=== PATIENT | male | born 1960 | race Caucasian/White ===

== ENCOUNTER → 2016-09-23 | Outpatient (CLI) | payer BC ==
--- NOTE | 2016-09-28 11:24 | ECHO ---
EXAM DATE: 09/23/16 PATIENT'S AGE: 56 The echocardiogram report can be seen in this patient's EMR (Electronic Medical Record) in the Reports section. PEARL
== END ==
LOC: MW.US 13:48
PROVIDERS: ATTEND Internal Medicine
DX: R07.9 Chest pain, unspecified (principal)
CPT/HCPCS: 93306

== ENCOUNTER → 2016-09-24 | Outpatient (CLI) | payer BC ==
--- NOTE | 2016-09-27 09:20 | NM ---
EXAMINATION: Nuclear medicine myocardial perfusion study with exercise stress test. HISTORY: Chest pain. PROCEDURE: Patient exercised according to Vin protocol for 7 minutes and 42 seconds and achieved maximal hear t rate of 152 beats per minute. Adequate exercise. Following intravenous administration of 10.3 and 32.4 mCi of technetium 99m sestamibi, stress and rest SPECT images including gating imaging was performed. FINDINGS: Stress and rest myocardial SPECT images demonstrates uniform tracer uptake throughout the left ventr icular myocardium. Review of gated images demonstrates normal wall motion, contractility and wall thickening. The left ventricular ejection fraction is 71 %. The left ventricular chamber size is normal. IMPRESSION: 1. No evidence of myocardial ischemia. 2. Normal ventricular chamber size and function with ejection fraction of 71 %.
--- NOTE | 2016-09-27 17:08 | PCM.PRNOTE ---
- Free Text/Narrative Note: Procedure: Cardiolite exercise stress test Resting blood pressure 132/84, pulse 78 Patient exercised per Vin protocol 7 minutes and 42 seconds and achieved a maximum heart rate of 152 beats per minute which was 92% of age-predicted maximum heart rate. Mets: 10.1 double product 72506 Resting EKG revealed normal sinus rhythm With exertion, no significant ST-T changes were noted. Test stopped at target heart rate. No complaints of chest pain during exercise or recovery with an unremarkable recovery phase. Impression: #1. Negative stress test for ischemic ST-T changes #2. Fair exercise tolerance #3. Cardiolite portion of test pending.
== END ==
LOC: MW.NM 06:25
PROVIDERS: ATTEND Internal Medicine
DX: R07.9 Chest pain, unspecified (principal)
CPT/HCPCS: 78452; 93017; A9500

== ENCOUNTER 2021-01-21 09:52 | Inpatient (IN) | payer BC ==
[2021-01-21] MEDS ORDERED: Sodium Chloride 0.9% 1,000 ML IV ONE ×2 (10:05→11:25)
--- NOTE | 2021-01-21 10:12 | EDM.PDOC ---
ED HPI GENERAL MEDICAL PROBLEM - General Chief Complaint: Gastrointestinal Problem Stated Complaint: DIZZY/BLACK STOOL/ LOW BLOOD PRESSURE Time Seen by Provider: 01/21/21 09:57 Source of Information: Reports: Patient History Limitations: Reports: No Limitations - History of Present Illness INITIAL COMMENTS - FREE TEXT/NARRATIVE: 60-year-old male presents for generalized weakness, lightheadedness, dark tarry stools x3 days. Patient notes a history of similar several years ago, had a work-up revealing an intestinal polyp that was removed. No known history of esophageal varices or stomach ulcers. Patient denies any associated abdominal pain. He is not on any blood thinning medications. He does take medications for high blood pressure. - Related Data Allergies Allergy/AdvReac Type Severity Reaction Status Date / Time No Known Allergies Allergy Verified 01/21/21 10:07 Home Meds: Home Meds . [No Known Home Meds] 01/08/16 [History] Past Medical History - Past Health History Medical/Surgical History: Denies Medical/Surgical History Respiratory History: Reports: Sleep Apnea Endocrine/Metabolic History: Reports: Obesity/BMI 30+ - Past Surgical History Head Surgeries/Procedures: Reports: None Other GI Surgeries/Procedures: hiatal hernia lap surgery 15 yrs ago ED ROS GENERAL - Review of Systems Review Of Systems: Comprehensive ROS is negative, except as noted in HPI. ED EXAM, GENERAL - Physical Exam Exam: See Below Exam Limited By: No Limitations General Appearance: Alert, WD/WN, No Apparent Distress, Other (Pale skin) Ears: Hearing Grossly Normal Nose: Normal Inspection Throat/Mouth: Normal Voice, No Airway Compromise Head: Atraumatic, Normocephalic Neck: Normal Inspection Respiratory/Chest: No Respiratory Distress, Lungs Clear, Normal Breath Sounds, No Accessory Muscle Use Cardiovascular: Normal Peripheral Pulses, Tachycardia GI/Abdominal: Soft, Non-Tender Extremities: Normal Inspection Neurological: Alert, Oriented, Normal Cognition, Normal Gait Psychiatric: Normal Affect, Normal Mood Skin Exam: Warm, Dry, Intact, Pallor #1 Interpretation EKG Date: 01/21/21 Time: 10:11 Rhythm: NSR Rate (Beats/Min): 85 [place]: Normal P-Wave: Present QRS: Normal ST-T: Normal QT: Normal OR/PQ Interval: 138 Comparison: NA - No Prior EKG EKG Interpretation Comments: normal EKG Course - Vital Signs Last Recorded V/S: Last Vital Signs Temp 96.8 F L 01/21/21 10:05 Pulse 89 01/21/21 11:40 Resp 16 01/21/21 11:40 BP 130/72 01/21/21 11:40 Pulse Ox 100 01/21/21 11:40 - Orders/Labs/Meds Orders: Active Orders 24 hr Category Date Time Status PATIENT RETYPE [BBK] Routine Lab 01/21/21 11:47 Received REFLEX LACTIC ACID YES OR NO [CHEM] Routine Lab 01/21/21 10:42 Received Saline Lock Insert [OM.PC] Stat Oth 01/21/21 10:05 Ordered Labs: Laboratory Tests 01/21/21 01/21/21 01/21/21 Range/Units 10:03 10:04 10:04 WBC 11.59 H (4.0-11.0) K/uL RBC 4.31 L (4.50-5.90) M/uL Hgb 12.6 L (13.0-17.0) g/dL Hct 36.2 L (38.0-50.0) % MCV 84.0 (80.0-98.0) fL MCH 29.2 (27.0-32.0) pg MCHC 34.8 (31.0-37.0) g/dL RDW Std Deviation 43.3 (28.0-62.0) fl RDW Coeff of Reji 14 (11.0-15.0) % Plt Count 318 (150-400) K/uL MPV 9.20 (7.40-12.00) fL Neut % (Auto) 51.6 (48.0-80.0) % Lymph % (Auto) 37.4 (16.0-40.0) % [place] % (Auto) 8.3 (0.0-15.0) % Eos % (Auto) 2.2 (0.0-7.0) % Baso % (Auto) 0.5 (0.0-1.5) % Neut # (Auto) 6.0 H (1.4-5.7) K/uL Lymph # (Auto) 4.3 H (0.6-2.4) K/uL [place] # (Auto) 1.0 H (0.0-0.8) K/uL Eos # (Auto) 0.3 (0.0-0.7) K/uL Baso # (Auto) 0.1 (0.0-0.1) K/uL Nucleated RBC % 0.0 /100WBC Nucleated RBCs # 0 K/uL INR APTT (18.6-31.3) SEC Sodium (136-148) mmol/L Potassium (3.5-5.1) mmol/L Chloride (98-107) mmol/L Carbon Dioxide (21.0-32.0) mmol/L BUN (7.0-18.0) mg/dL Creatinine (0.8-1.3) mg/dL Est Cr Clr Drug Dosing mL/min Estimated GFR (MDRD) ml/min Glucose (74-106) mg/dL Lactic Acid (0.4-2.0) mmol/L Calcium (8.5-10.1) mg/dL Magnesium (1.8-2.4) mg/dL Total Bilirubin (0.2-1.0) mg/dL AST (15-37) IU/L ALT (14-63) IU/L Alkaline Phosphatase (46-116) U/L Troponin I (0.000-0.056) ng/mL Total Protein (6.4-8.2) g/dL Albumin (3.4-5.0) g/dL Globulin (2.6-4.0) g/dL Albumin/Globulin Ratio (0.9-1.6) Lipase (73-393) U/L SARS-CoV-2 RNA (NATHALIE) NEGATIVE (NEGATIVE) Blood Type O NEGATIVE Antibody Screen NEGATIVE 01/21/21 01/21/21 01/21/21 Range/Units 10:04 10:04 10:04 WBC (4.0-11.0) K/uL RBC (4.50-5.90) M/uL Hgb (13.0-17.0) g/dL Hct (38.0-50.0) % MCV (80.0-98.0) fL MCH (27.0-32.0) pg MCHC (31.0-37.0) g/dL RDW Std Deviation (28.0-62.0) fl RDW Coeff of Reji (11.0-15.0) % Plt Count (150-400) K/uL MPV (7.40-12.00) fL Neut % (Auto) (48.0-80.0) % Lymph % (Auto) (16.0-40.0) % [place] % (Auto) (0.0-15.0) % Eos % (Auto) (0.0-7.0) % Baso % (Auto) (0.0-1.5) % Neut # (Auto) (1.4-5.7) K/uL Lymph # (Auto) (0.6-2.4) K/uL [place] # (Auto) (0.0-0.8) K/uL Eos # (Auto) (0.0-0.7) K/uL Baso # (Auto) (0.0-0.1) K/uL Nucleated RBC % /100WBC Nucleated RBCs # K/uL INR 1.05 APTT 24.1 (18.6-31.3) SEC Sodium 136 (136-148) mmol/L Potassium 4.6 (3.5-5.1) mmol/L Chloride 104 (98-107) mmol/L Carbon Dioxide 25.1 (21.0-32.0) mmol/L BUN 50 H (7.0-18.0) mg/dL Creatinine 1.1 (0.8-1.3) mg/dL Est Cr Clr Drug Dosing 70.82 mL/min Estimated GFR (MDRD) > 60.0 ml/min Glucose 158 H (74-106) mg/dL Lactic Acid 2.4 H* (0.4-2.0) mmol/L Calcium 8.0 L (8.5-10.1) mg/dL Magnesium 2.2 (1.8-2.4) mg/dL Total Bilirubin 0.6 (0.2-1.0) mg/dL AST 15 (15-37) IU/L ALT 24 (14-63) IU/L Alkaline Phosphatase 65 (46-116) U/L Troponin I < 0.050 (0.000-0.056) ng/mL Total Protein 6.5 (6.4-8.2) g/dL Albumin 3.4 (3.4-5.0) g/dL Globulin 3.1 (2.6-4.0) g/dL Albumin/Globulin Ratio 1.1 (0.9-1.6) Lipase 73 (73-393) U/L SARS-CoV-2 RNA (NATHALIE) (NEGATIVE) Blood Type Antibody Screen Meds: Medications Discontinued Medications Generic Name Dose Route Start Last Admin Trade Name Jeanine PRN Reason Stop Dose Admin Sodium Chloride 1,000 mls @ 999 mls/hr 01/21/21 10:05 01/21/21 10:23 Normal Saline IV 01/21/21 11:05 999 mls/hr .Bolus ONE Administration Pantoprazole Sodium 80 mg/ 20 mls @ 420 mls/hr 01/21/21 10:22 01/21/21 10:28 Sodium Chloride IVPUSH 01/21/21 10:24 420 mls/hr ONETIME ONE Administration Sodium Chloride 1,000 mls @ 999 mls/hr 01/21/21 11:25 01/21/21 11:34 Normal Saline IV 01/21/21 12:25 999 mls/hr .Bolus ONE Administration Iopamidol 100 ml 01/21/21 11:35 01/21/21 11:36 Iopamidol 755 Mg/Ml 500 Ml Multipack Bottle IVPUSH 01/21/21 11:36 100 ml ONETIME STA Administration - Re-Assessments/Exams Free Text/Narrative Re-Assessment/Exam: 01/21/21 10:12 Patient presents with GI bleed. Will get labs. 2 large-bore IVs placed in bilateral AC. 1 L fluid bolus ordered. 01/21/21 10:23 Rectal exam reveals dark tarry stool that is grossly guaiac positive 01/21/21 13:14 Dr Gallagher general surgery agrees to consult 01/21/21 13:22 Patient was accepted by hospitalist Dr. Gallagher Departure - Departure Time of Disposition: 13:23 Disposition: Admitted As Inpatient 68 Condition: Good Clinical Impression: UGIB (upper gastrointestinal bleed) - Discharge Information Referrals: Vin Ivey MD [Primary Care Provider] - Forms: ED Department Discharge Sepsis Event Note (ED) - Evaluation Sepsis Screening Result: Possible Sepsis Risk - Focused Exam Vital Signs: Vital Signs Temp Pulse Resp BP Pulse Ox 01/21/21 11:40 89 16 130/72 100 01/21/21 10:24 87 16 107/66 99 01/21/21 10:05 96.8 F L 118 H 17 120/71 97 - My Orders Last 24 Hours: My Active Orders 01/21/21 10:05 Saline Lock Insert [OM.PC] Stat 01/21/21 10:42 REFLEX LACTIC ACID YES OR NO [CHEM] Routine 01/21/21 11:47 PATIENT RETYPE [BBK] Routine - Assessment/Plan Last 24 Hours: My Active Orders 01/21/21 10:05 Saline Lock Insert [OM.PC] Stat 01/21/21 10:42 REFLEX LACTIC ACID YES OR NO [CHEM] Routine 01/21/21 11:47 PATIENT RETYPE [BBK] Routine
[2021-01-21] MEDS ORDERED: Pantoprazole 80 MG in Sodium Chloride 0.9% 20 ML IVPUSH ONE (10:22)
[2021-01-21 10:35] LABS: BLOOD UREA NITROGEN,BUN 50 mg/dL (7.0-18.0); CARBON DIOXIDE,CO2 25.1 mmol/L (21.0-32.0); CHLORIDE,CL 104 mmol/L (98-107); GLUCOSE RANDOM 158 mg/dL (74-106); LIPASE 73 U/L (73-393); POTASSIUM,K 4.6 mmol/L (3.5-5.1); SODIUM,NA 136 mmol/L (136-148)
[2021-01-21] MEDS ORDERED: Iopamidol 755 MG/ML 500 ML Multipack Bottle IVPUSH STA (11:35)
--- NOTE | 2021-01-21 13:06 | CT ---
INDICATION: Melena, question GI bleed. COMPARISON: None. TECHNIQUE: CTA of the abdomen and pelvis with 100 cc of Isovue 370 IV contrast. Coronal and sagittal reconstructions. 3D post processing was performed. FINDINGS: Evaluation of the solid organs is somewhat limited by arterial phase of contrast. The liver, gallbladder, spleen, pancreas, and adrenal glands are negative. No biliary dilation. Symmetric enhancement of the kidneys. No hydronephrosis or ureteral dilation. No obstructing urinary calculi. The bladder is normal in appearance. Mildly enlarged prostate gland with calcifications. Postoperative changes at the gastroesophageal junction, likely a fundoplication. No bowel dilation. No abnormal bowel wall thickening or mucosal hyperenhancement to suggest inflammation. No focus of active extravasation identified. No obvious accumulation of intraluminal blood products. Negative appendix. No intraperitoneal free air or fluid. No lymphadenopathy. The abdominal aorta and bilateral iliac arteries are normal in caliber without evidence of dissection or penetrating atheromatous ulcer. The celiac artery, superior mesenteric artery, inferior mesenteric artery, and bilateral renal arteries are patent without significant stenosis. Minimal scattered calcified atheromatous plaque. Degenerative changes of the spine. Few small sclerotic lesions in the pelvis may represent bone islands. Cluster of small noncalcified pulmonary nodules with associated ground-glass opacity in the anterior right lower lobe is likely infectious or inflammatory (series 403 images 3-8). The largest nodule measures 6 mm in size. IMPRESSION: 1. No acute findings in the abdomen or pelvis. 2. No evidence of bowel inflammation, active extravasation, or intraluminal blood products. 3. Mildly enlarged prostate gland. 4. Cluster of small pulmonary nodules with associated ground-glass opacity in the anterior right lower lobe is likely infectious or inflammatory. The largest nodule measures 6 mm in size. Follow-up per Fleischner Society guidelines. Please note that all CT scans at this facility use dose modulation, iterative reconstruction, and/or weight-based dosing when appropriate to reduce radiation dose to as low as reasonably achievable. Dictated by Karen Sepulveda MD @ 01/21/2021 1:05:02 PM (Electronically Signed)
[2021-01-21] MEDS ORDERED: Ondansetron 4 MG/2 ML SDV IVPUSH PRN (15:01)
[2021-01-21] MEDS ORDERED: Sodium Chloride 0.9% 2.5 ML Syringe FLUSH PRN (15:01)
--- NOTE | 2021-01-21 15:09 | PCM.HP.2 ---
H&P History of Present Illness - General Date of Service: 01/21/21 Admit Problem/Dx: Admission Diagnosis/Problem Admission Diagnosis/Problem Upper gastrointestinal hemorrhage Source of Information: Patient, Family (at bedside, ) History Limitations: Reports: No Limitations - History of Present Illness Initial Comments - Free Text/Narative: This 60-year-old male with past medical history of HTN, ANNETTE and obesity along with hiatal hernia laparoscopic surgery approximately 15 years ago presented to the ER today with complaints of generalized weakness lightheadedness and dark tarry stools for approximately 3 days. He denies any abdominal pain fevers chills chest pain or shortness of breath. He denies any use of blood thinners. He denies use of Pepto-Bismol or Tums recently no daily use of PPIs. He reports intermittent use of Excedrin for headaches has not used anything recently. He denies any tobacco use or recreational drug use. He reports he drinks a couple drinks a couple times a week but not nightly. Reports he had a colonoscopy a few years ago which they found an intestinal polyp which was removed. He reports he is currently due for colonoscopy denies ever having an EGD. He denies any history of GERD after hiatal hernia surgery. In the ER EKG sinus rhythm heart rate [address] or T wave changes. Guaiac positive stools he was treated with 1 L IV fluids. Lab work reveals WBC 11.5 hemoglobin 12.6 hematocrit 36.2. INR 1.05 BUN is 50 creatinine 1.1. Glucose 158 lactic acid elevated at 2.4 troponin negative Covid swab negative abdominal CTA of the belly reveals no acute findings in the abdomen or pelvis no evidence of bowel inflammation active extravasation or intraluminal blood products. Mildly large prostate gland. Cluster small pulmonary nodules with associated groundglass opacities in the anterior right lower lobe is likely infectious or inflammatory largest nodule 6 mm. Follow-up with PCP. Vital signs in the ER initially patient was noted to be tachycardic heart rate 118 blood pressure 120/71 97% on room air. ER provider contacted Dr. Tom Dumont, general surgery will likely take patient for endoscopy. Patient to be admitted for suspected upper GI bleed. - Related Data Allergies/Adverse Reactions: Allergies Allergy/AdvReac Type Severity Reaction Status Date / Time No Known Allergies Allergy Verified 01/21/21 10:07 Home Medications: Home Meds . [No Known Home Meds] 01/08/16 [History] Past Medical History - Past Health History Medical/Surgical History: Denies Medical/Surgical History HEENT History: Reports: None Cardiovascular History: Reports: Hypertension. Denies: Afib, Blood Clots/VTE/DVT, CAD, [place], Stents Respiratory History: Reports: Sleep Apnea Gastrointestinal History: Reports: GERD (Has been's consult hiatal hernia surgery), Hiatal Hernia (Surgery approximately 15 years ago to correct this) Genitourinary History: Reports: None. Denies: Acute Renal Failure Musculoskeletal History: Reports: None Neurological History: Reports: None Psychiatric History: Reports: None Endocrine/Metabolic History: Reports: Obesity/BMI 30+. Denies: Diabetes, Type II Hematologic History: Reports: None Immunologic History: Reports: None Oncologic (Cancer) History: Reports: None Dermatologic History: Reports: None - Infectious Disease History Infectious Disease History: Reports: None - Past Surgical History Head Surgeries/Procedures: Reports: None GI Surgical History: Reports: Hernia Repair/Other (Hiatal hernia laparoscopic surgery 15 years ago to correct) Endocrine Surgical History: Reports: None Musculoskeletal Surgical History: Reports: None Social & Family History - Family History Family Medical History: No Pertinent Family History - Tobacco Use Tobacco Use Status *Q: Never Tobacco User - Caffeine Use Caffeine Use: Reports: None - Alcohol Use Days Per Week of Alcohol Use: 2 Number of Drinks Per Day: 2 Total Drinks Per Week: 4 - Recreational Drug Use Recreational Drug Use: No - Living Situation & Occupation Living situation: Reports: Occupation: Employed H&P Review of Systems - Review of Systems: Review Of Systems: See Below General: Reports: Malaise, Weakness, Fatigue. Denies: Fever, Chills HEENT: Reports: Vertigo. Denies: Headaches, Sinus Congestion, Sore Throat Pulmonary: Reports: No Symptoms. Denies: Shortness of Breath Cardiovascular: Reports: Dyspnea on Exertion, Lightheadedness. Denies: Chest Pain, Palpitations Gastrointestinal: Reports: Black Stool. Denies: Abdominal Pain, Nausea, Vomiting Genitourinary: Reports: No Symptoms. Denies: Dysuria, Frequency, Burning Musculoskeletal: Reports: No Symptoms. Denies: Neck Pain Skin: Reports: No Symptoms Psychiatric: Reports: No Symptoms Neurological: Reports: No Symptoms Hematologic/Lymphatic: Reports: No Symptoms Immunologic: Reports: No Symptoms Exam - Exam Exam: See Below - Vital Signs Vital Signs: Last Vital Signs Temp 96.6 F L 01/21/21 13:35 Pulse 88 01/21/21 13:35 Resp 18 01/21/21 13:35 BP 113/71 01/21/21 13:35 Pulse Ox 100 01/21/21 13:35 Weight: 92.986 kg - Exam General: Alert, Oriented, Cooperative HEENT: Conjunctiva Clear, Mucosa Moist & [place], Posterior Pharynx Clear Lungs: Clear to Auscultation, Normal Respiratory Effort Cardiovascular: Regular Rate, Regular Rhythm GI/Abdominal Exam: Normal Bowel Sounds, Soft, Non-Tender Back Exam: Normal Inspection, Full Range of Motion Extremities: Normal Inspection, Normal Range of Motion, Non-Tender, No Pedal Edema Neuro Extensive - Mental Status: Alert, Oriented x3 Neuro Extensive - Motor, Sensory, Reflexes: CN II-XII Intact Psychiatric: Alert, Normal Affect, Normal Mood - Patient Data Lab Results Last 24 hrs: Laboratory Results - last 24 hr 01/21/21 01/21/21 01/21/21 Range/Units 10:03 10:04 10:04 WBC 11.59 H (4.0-11.0) K/uL RBC 4.31 L (4.50-5.90) M/uL Hgb 12.6 L (13.0-17.0) g/dL Hct 36.2 L (38.0-50.0) % MCV 84.0 (80.0-98.0) fL MCH 29.2 (27.0-32.0) pg MCHC 34.8 (31.0-37.0) g/dL RDW Std Deviation 43.3 (28.0-62.0) fl RDW Coeff of Reji 14 (11.0-15.0) % Plt Count 318 (150-400) K/uL MPV 9.20 (7.40-12.00) fL Neut % (Auto) 51.6 (48.0-80.0) % Lymph % (Auto) 37.4 (16.0-40.0) % [place] % (Auto) 8.3 (0.0-15.0) % Eos % (Auto) 2.2 (0.0-7.0) % Baso % (Auto) 0.5 (0.0-1.5) % Neut # (Auto) 6.0 H (1.4-5.7) K/uL Lymph # (Auto) 4.3 H (0.6-2.4) K/uL [place] # (Auto) 1.0 H (0.0-0.8) K/uL Eos # (Auto) 0.3 (0.0-0.7) K/uL Baso # (Auto) 0.1 (0.0-0.1) K/uL Nucleated RBC % 0.0 /100WBC Nucleated RBCs # 0 K/uL INR APTT (18.6-31.3) SEC Sodium (136-148) mmol/L Potassium (3.5-5.1) mmol/L Chloride (98-107) mmol/L Carbon Dioxide (21.0-32.0) mmol/L BUN (7.0-18.0) mg/dL Creatinine (0.8-1.3) mg/dL Est Cr Clr Drug Dosing mL/min Estimated GFR (MDRD) ml/min Glucose (74-106) mg/dL Lactic Acid (0.4-2.0) mmol/L Calcium (8.5-10.1) mg/dL Magnesium (1.8-2.4) mg/dL Total Bilirubin (0.2-1.0) mg/dL AST (15-37) IU/L ALT (14-63) IU/L Alkaline Phosphatase (46-116) U/L Troponin I (0.000-0.056) ng/mL Total Protein (6.4-8.2) g/dL Albumin (3.4-5.0) g/dL Globulin (2.6-4.0) g/dL Albumin/Globulin Ratio (0.9-1.6) Lipase (73-393) U/L SARS-CoV-2 RNA (NATHALIE) NEGATIVE (NEGATIVE) Blood Type O NEGATIVE Antibody Screen NEGATIVE 01/21/21 01/21/21 01/21/21 Range/Units 10:04 10:04 10:04 WBC (4.0-11.0) K/uL RBC (4.50-5.90) M/uL Hgb (13.0-17.0) g/dL Hct (38.0-50.0) % MCV (80.0-98.0) fL MCH (27.0-32.0) pg MCHC (31.0-37.0) g/dL RDW Std Deviation (28.0-62.0) fl RDW Coeff of Reji (11.0-15.0) % Plt Count (150-400) K/uL MPV (7.40-12.00) fL Neut % (Auto) (48.0-80.0) % Lymph % (Auto) (16.0-40.0) % [place] % (Auto) (0.0-15.0) % Eos % (Auto) (0.0-7.0) % Baso % (Auto) (0.0-1.5) % Neut # (Auto) (1.4-5.7) K/uL Lymph # (Auto) (0.6-2.4) K/uL Snyder # (Auto) (0.0-0.8) K/uL Eos # (Auto) (0.0-0.7) K/uL Baso # (Auto) (0.0-0.1) K/uL Nucleated RBC % /100WBC Nucleated RBCs # K/uL INR 1.05 APTT 24.1 (18.6-31.3) SEC Sodium 136 (136-148) mmol/L Potassium 4.6 (3.5-5.1) mmol/L Chloride 104 (98-107) mmol/L Carbon Dioxide 25.1 (21.0-32.0) mmol/L BUN 50 H (7.0-18.0) mg/dL Creatinine 1.1 (0.8-1.3) mg/dL Est Cr Clr Drug Dosing 70.82 mL/min Estimated GFR (MDRD) > 60.0 ml/min Glucose 158 H (74-106) mg/dL Lactic Acid 2.4 H* (0.4-2.0) mmol/L Calcium 8.0 L (8.5-10.1) mg/dL Magnesium 2.2 (1.8-2.4) mg/dL Total Bilirubin 0.6 (0.2-1.0) mg/dL AST 15 (15-37) IU/L ALT 24 (14-63) IU/L Alkaline Phosphatase 65 (46-116) U/L Troponin I < 0.050 (0.000-0.056) ng/mL Total Protein 6.5 (6.4-8.2) g/dL Albumin 3.4 (3.4-5.0) g/dL Globulin 3.1 (2.6-4.0) g/dL Albumin/Globulin Ratio 1.1 (0.9-1.6) Lipase 73 (73-393) U/L SARS-CoV-2 RNA (NATHALIE) (NEGATIVE) Blood Type Antibody Screen Result Diagrams: 01/21/21 10:04 01/21/21 10:04 Sepsis Event Note - Evaluation Sepsis Screening Result: Possible Sepsis Risk - Focused Exam Vital Signs: Vital Signs Temp Pulse Resp BP Pulse Ox 01/21/21 13:35 96.6 F L 88 18 113/71 100 01/21/21 11:40 89 16 130/72 100 01/21/21 10:24 87 16 107/66 99 01/21/21 10:05 96.8 F L 118 H 17 120/71 97 *Q Meaningful Use (ADM) - VTE *Q VTE Pharmacological Contraindications *Q: Active Hemorrhage - Problem List (1) UGIB (upper gastrointestinal bleed) SNOMED Code(s): 86986728 ICD Code: K92.2 - GASTROINTESTINAL HEMORRHAGE, UNSPECIFIED Status: Acute Current Visit: Yes (2) Hypertension SNOMED Code(s): 54901786 ICD Code: I10 - ESSENTIAL (PRIMARY) HYPERTENSION Status: Chronic Current Visit: Yes (3) Obesity SNOMED Code(s): 378036688, 369437056 ICD Code: E66.9 - OBESITY, UNSPECIFIED Status: Chronic Current Visit: Yes (4) ANNETTE (obstructive sleep apnea) SNOMED Code(s): 51306116 ICD Code: G47.33 - OBSTRUCTIVE SLEEP APNEA (ADULT) (PEDIATRIC) Status: Chronic Current Visit: Yes Problem List Initiated/Reviewed/Updated: Yes Orders Last 24hrs: Active Orders 24 hr Category Date Time Status Patient Status [ADT] Routine ADT 01/21/21 13:23 Active Antiembolic Devices [RC] PER UNIT ROUTINE Care 01/21/21 15:02 Ordered Intake and Output [RC] QSHIFT Care 01/21/21 15:01 Ordered Oxygen Therapy [RC] PRN Care 01/21/21 15:01 Ordered Peripheral IV Care [RC] . DIRECTED Care 01/21/21 15:01 Ordered Up With Assistance [RC] ASDIRECTED Care 01/21/21 15:01 Ordered VTE/DVT Education [RC] PER UNIT ROUTINE Care 01/21/21 15:01 Ordered Vital Signs [RC] Q4H Care 01/21/21 15:01 Ordered BASIC METABOLIC PANEL,BMP [CHEM] AM Lab 01/22/21 05:11 Ordered CBC WITH AUTO DIFF [HEME] AM Lab 01/22/21 05:11 Ordered HEMOGLOBIN/HEMATOCRIT,HH [HEME] Timed Lab 01/21/21 16:00 Ordered LACTIC ACID [CHEM] Routine Lab 01/21/21 14:42 Ordered Ondansetron [Zofran] Med 01/21/21 15:01 Ordered 4 mg IVPUSH Q4H PRN Pantoprazole [ProTONIX IV] Med 01/21/21 21:00 Ordered 40 mg IV Q12HR Sodium Chloride 0.9% [Normal Saline] 1,000 ml Med 01/21/21 15:15 Ordered IV Q8H Sodium Chloride 0.9% [Saline Flush] Med 01/21/21 15:01 Ordered 2.5 ml FLUSH ASDIRECTED PRN Peripheral IV Insertion Adult [OM.PC] Routine Oth 01/21/21 15:01 Ordered Saline Lock Insert [OM.PC] Routine Oth 01/21/21 15:01 Ordered Sequential Compression Device [OM.PC] Per Unit Routine Oth 01/21/21 15:02 Ordered VTE Pharmacological Contraindications [AST] Per Unit Oth 01/21/21 15:01 Ordered Routine Resuscitation Status Routine Resus Stat 01/21/21 15:01 Ordered Medication Orders Sodium Chloride (Normal Saline) 1,000 mls @ 125 mls/hr IV Q8H BERNIE Ondansetron HCl (Ondansetron 4 Mg/2 Ml Sdv) 4 mg IVPUSH Q4H PRN PRN Reason: Nausea Pantoprazole Sodium (Pantoprazole 40 Mg Vial) 40 mg IV Q12HR BERNIE Sodium Chloride (Sodium Chloride 0.9% 2.5 Ml Syringe) 2.5 ml FLUSH ASDIRECTED PRN PRN Reason: Keep Vein Open Assessment/Plan Comment:: This 60-year-old male admitted with upper GI bleed 1. Upper GI bleed -Repeat hemoglobin now along with a lactic acid -Patient treated with 2 L IV fluids in the ER -Blood pressure stable heart rate has improved from tachycardia on arrival. -Guaiac positive in the ER -Protonix 40 mg every 12 IV -Normal saline 125 mL/h -N.p.o. -Consult Dr. Tom Dumont, general surgery for endoscopy 2. HTN/ANNETTE -Hold losartan for now VTE prophylaxis: SCDs and ambulation only due to current bleeding GI prophylaxis: Protonix CODE STATUS: Full code Dispo: 2 days pending improvement - Mortality Measure Prognosis:: Good
[2021-01-21] MEDS: Sodium Chloride 0.9% 1,000 ML IV SCH ×2 (15:24→23:14)
[2021-01-21] MEDS ORDERED: Pantoprazole 40 MG Vial IV SCH (21:00)
[2021-01-21] MEDS: Pantoprazole 40 MG in Sodium Chloride 0.9% 10 ML IV SCH (22:00)
--- NOTE | 2021-01-21 23:56 | CONS ---
DATE OF CONSULTATION: 01/21/2021 DATE OF : 1960 PRIMARY CARE PHYSICIAN: Vin Ivey HISTORY OF PRESENT ILLNESS: The patient is a pleasant 60-year-old gentleman who says for the past 3 days he has had some very dark stools. Initially, they were a little more loose, but now they are more solid and they have been a slightly [employer] he says. He just had one a day. He says that also he started having a little bit of lightheadedness. He is feeling better now. He did have guaiac-positive stools. He went to the ER for evaluation. The patient says in the past, he will have dark stools 3 to 4 times a year, like it is now, cut they only last for a day or so then go away. This has been happening for a few years. He says about 6 or 7 years ago, he had a similar episode, and he had a colonoscopy, which just found one polyp that was removed. The patient denies any heartburn or GERD issues. The patient says he had a repair of his hiatal hernia about 20 years ago. He does not know if he had a wrap, although on CT scan it looks like there was a wrap done. He does not take any antacids. PAST MEDICAL HISTORY: Significant for hypertension, obstructive sleep apnea. CURRENT HOME MEDICATION: Losartan daily. ALLERGIES: No known drug allergies. SOCIAL HISTORY: The patient denies any tobacco use, denies illicit drug use, denies any alcohol use. FAMILY HISTORY: Denies any family history of cancer or heart disease or diabetes. PAST SURGICAL HISTORY: Hiatal hernia repair with likely fundoplication. REVIEW OF SYSTEMS: Complete 12+ review of systems was done and was negative except those in the HPI. PHYSICAL EXAMINATION: GENERAL: The patient is lying comfortably in his bed. He is alert and oriented, in no acute distress. VITALS: Temperature is 98.8, pulse is 83, blood pressure is 114/72, saturating 99% on room air. HEENT: Head is normocephalic, atraumatic. LUNGS: Clear to auscultation bilaterally. No rhonchi or wheezing heard. HEART: Regular rate and rhythm. No murmur appreciated. ABDOMEN: Soft, nontender, nondistended. EXTREMITIES: No edema. NEUROLOGIC: Grossly no motor or neurologic deficits noted. LABORATORY DATA: White cell count 11.56, hemoglobin is 11.5. BUN is 50, glucose is 158. Lactic acid 1.5. COVID is negative. ASSESSMENT AND PLAN: The patient is a pleasant 60-year-old gentleman with some what he calls very dark stools over the last 3 days. These seem to be improving. First, they were loose and now a little bit more solid. The patient has had this issue with very dark stools in the past. I did go over with the patient that dark stools could be a sign of a gastrointestinal bleed. I did go over we could do a lower and upper endoscopy. I went over what an upper endoscopy and lower endoscopy were. I went over the risks, goals, and alternatives to the procedure. The risks include, but not limited to, bleeding, perforation, missed lesions, failure to complete the procedure. I did go over if we saw any polyp or lesion, we will try to remove or biopsy at that time. I did explain with the EGD we will look for some gastritis, ulcers, and maybe bleeding. The patient says he understands. He wishes to proceed with the procedure. All the patient's questions were answered. I did go over that we could do a bowel prep tomorrow and get him scoped the next day. The patient would like to proceed with procedure. I did go over with the patient that we might not find a cause for dark stools in either of the two scopes. The patient says he understands. I did discuss the patient with the Medicine team. All the patient's questions were answered. JUD BERNSTEIN /[id number] PEARL
[2021-01-22 06:50] LABS: BLOOD UREA NITROGEN,BUN 22 mg/dL (7.0-18.0); CARBON DIOXIDE,CO2 24.7 mmol/L (21.0-32.0); CHLORIDE,CL 108 mmol/L (98-107); GLUCOSE RANDOM 99 mg/dL (74-106); POTASSIUM,K 4.1 mmol/L (3.5-5.1); SODIUM,NA 140 mmol/L (136-148)
[2021-01-22] MEDS: Sodium Chloride 0.9% 1,000 ML IV SCH ×2 (07:46→15:42)
--- NOTE | 2021-01-22 08:05 | PCM.PN ---
- General Info Date of Service: 01/22/21 Admission Dx/Problem (Free Text): Admission Diagnosis/Problem Admission Diagnosis/Problem Upper gastrointestinal hemorrhage Subjective Update: Feeling improved today. Had a black stool small this morning nothing overnight. Denies any chest pain abdominal pain or heartburn. Otherwise feeling well. Functional Status: Reports: Pain Controlled, Tolerating Diet (Clear liquid), Ambulating, Urinating - Review of Systems General: Reports: No Symptoms. Denies: Weakness, Fatigue, Malaise Pulmonary: Reports: No Symptoms. Denies: Shortness of Breath Cardiovascular: Reports: No Symptoms. Denies: Chest Pain Gastrointestinal: Reports: No Symptoms. Denies: Abdominal Pain, Nausea, Vomitin g Genitourinary: Reports: No Symptoms. Denies: Dysuria, Frequency, Burning Musculoskeletal: Reports: No Symptoms Skin: Reports: No Symptoms Neurological: Reports: No Symptoms Psychiatric: Reports: No Symptoms - Patient Data Vitals - Most Recent: Last Vital Signs Temp 97.4 F 01/22/21 04:00 Pulse 71 01/22/21 04:00 Resp 17 01/22/21 04:00 BP 102/59 L 01/22/21 04:00 Pulse Ox 97 01/22/21 04:00 Weight - Most Recent: 94.937 kg I&O - Last 24 Hours: Intake & Output 01/21/21 01/22/21 01/22/21 22:59 06:59 14:59 Intake Total 1660 Output Total 400 Balance 1260 Lab Results Last 24 Hours: Laboratory Results - last 24 hr 01/21/21 01/21/21 01/21/21 Range/Units 10:03 10:04 10:04 WBC 11.59 H (4.0-11.0) K/uL RBC 4.31 L (4.50-5.90) M/uL Hgb 12.6 L (13.0-17.0) g/dL Hct 36.2 L (38.0-50.0) % MCV 84.0 (80.0-98.0) fL MCH 29.2 (27.0-32.0) pg MCHC 34.8 (31.0-37.0) g/dL RDW Std Deviation 43.3 (28.0-62.0) fl RDW Coeff of Reji 14 (11.0-15.0) % Plt Count 318 (150-400) K/uL MPV 9.20 (7.40-12.00) fL Neut % (Auto) 51.6 (48.0-80.0) % Lymph % (Auto) 37.4 (16.0-40.0) % Nicholas % (Auto) 8.3 (0.0-15.0) % Eos % (Auto) 2.2 (0.0-7.0) % Baso % (Auto) 0.5 (0.0-1.5) % Neut # (Auto) 6.0 H (1.4-5.7) K/uL Lymph # (Auto) 4.3 H (0.6-2.4) K/uL Nicholas # (Auto) 1.0 H (0.0-0.8) K/uL Eos # (Auto) 0.3 (0.0-0.7) K/uL Baso # (Auto) 0.1 (0.0-0.1) K/uL Nucleated RBC % 0.0 /100WBC Nucleated RBCs # 0 K/uL INR APTT (18.6-31.3) SEC Sodium (136-148) mmol/L Potassium (3.5-5.1) mmol/L Chloride (98-107) mmol/L Carbon Dioxide (21.0-32.0) mmol/L BUN (7.0-18.0) mg/dL Creatinine (0.8-1.3) mg/dL Est Cr Clr Drug Dosing mL/min Estimated GFR (MDRD) ml/min Glucose (74-106) mg/dL Lactic Acid (0.4-2.0) mmol/L Calcium (8.5-10.1) mg/dL Magnesium (1.8-2.4) mg/dL Total Bilirubin (0.2-1.0) mg/dL AST (15-37) IU/L ALT (14-63) IU/L Alkaline Phosphatase (46-116) U/L Troponin I (0.000-0.056) ng/mL Total Protein (6.4-8.2) g/dL Albumin (3.4-5.0) g/dL Globulin (2.6-4.0) g/dL Albumin/Globulin Ratio (0.9-1.6) Lipase (73-393) U/L SARS-CoV-2 RNA (NATHALIE) NEGATIVE (NEGATIVE) Blood Type O NEGATIVE Antibody Screen NEGATIVE 01/21/21 01/21/21 01/21/21 Range/Units 10:04 10:04 10:04 WBC (4.0-11.0) K/uL RBC (4.50-5.90) M/uL Hgb (13.0-17.0) g/dL Hct (38.0-50.0) % MCV (80.0-98.0) fL MCH (27.0-32.0) pg MCHC (31.0-37.0) g/dL RDW Std Deviation (28.0-62.0) fl RDW Coeff of Reji (11.0-15.0) % Plt Count (150-400) K/uL MPV (7.40-12.00) fL Neut % (Auto) (48.0-80.0) % Lymph % (Auto) (16.0-40.0) % Nicholas % (Auto) (0.0-15.0) % Eos % (Auto) (0.0-7.0) % Baso % (Auto) (0.0-1.5) % Neut # (Auto) (1.4-5.7) K/uL Lymph # (Auto) (0.6-2.4) K/uL Nicholas # (Auto) (0.0-0.8) K/uL Eos # (Auto) (0.0-0.7) K/uL Baso # (Auto) (0.0-0.1) K/uL Nucleated RBC % /100WBC Nucleated RBCs # K/uL INR 1.05 APTT 24.1 (18.6-31.3) SEC Sodium 136 (136-148) mmol/L Potassium 4.6 (3.5-5.1) mmol/L Chloride 104 (98-107) mmol/L Carbon Dioxide 25.1 (21.0-32.0) mmol/L BUN 50 H (7.0-18.0) mg/dL Creatinine 1.1 (0.8-1.3) mg/dL Est Cr Clr Drug Dosing 70.82 mL/min Estimated GFR (MDRD) > 60.0 ml/min Glucose 158 H (74-106) mg/dL Lactic Acid 2.4 H* (0.4-2.0) mmol/L Calcium 8.0 L (8.5-10.1) mg/dL Magnesium 2.2 (1.8-2.4) mg/dL Total Bilirubin 0.6 (0.2-1.0) mg/dL AST 15 (15-37) IU/L ALT 24 (14-63) IU/L Alkaline Phosphatase 65 (46-116) U/L Troponin I < 0.050 (0.000-0.056) ng/mL Total Protein 6.5 (6.4-8.2) g/dL Albumin 3.4 (3.4-5.0) g/dL Globulin 3.1 (2.6-4.0) g/dL Albumin/Globulin Ratio 1.1 (0.9-1.6) Lipase 73 (73-393) U/L SARS-CoV-2 RNA (NATHALIE) (NEGATIVE) Blood Type Antibody Screen 01/21/21 01/21/21 01/21/21 Range/Units 15:17 15:17 23:40 WBC (4.0-11.0) K/uL RBC (4.50-5.90) M/uL Hgb 11.5 L 9.9 L (13.0-17.0) g/dL Hct 32.9 L 28.2 L (38.0-50.0) % MCV (80.0-98.0) fL MCH (27.0-32.0) pg MCHC (31.0-37.0) g/dL RDW Std Deviation (28.0-62.0) fl RDW Coeff of Reji (11.0-15.0) % Plt Count (150-400) K/uL MPV (7.40-12.00) fL Neut % (Auto) (48.0-80.0) % Lymph % (Auto) (16.0-40.0) % Nicholas % (Auto) (0.0-15.0) % Eos % (Auto) (0.0-7.0) % Baso % (Auto) (0.0-1.5) % Neut # (Auto) (1.4-5.7) K/uL Lymph # (Auto) (0.6-2.4) K/uL Nicholas # (Auto) (0.0-0.8) K/uL Eos # (Auto) (0.0-0.7) K/uL Baso # (Auto) (0.0-0.1) K/uL Nucleated RBC % /100WBC Nucleated RBCs # K/uL INR APTT (18.6-31.3) SEC Sodium (136-148) mmol/L Potassium (3.5-5.1) mmol/L Chloride (98-107) mmol/L Carbon Dioxide (21.0-32.0) mmol/L BUN (7.0-18.0) mg/dL Creatinine (0.8-1.3) mg/dL Est Cr Clr Drug Dosing mL/min Estimated GFR (MDRD) ml/min Glucose (74-106) mg/dL Lactic Acid 1.5 (0.4-2.0) mmol/L Calcium (8.5-10.1) mg/dL Magnesium (1.8-2.4) mg/dL Total Bilirubin (0.2-1.0) mg/dL AST (15-37) IU/L ALT (14-63) IU/L Alkaline Phosphatase (46-116) U/L Troponin I (0.000-0.056) ng/mL Total Protein (6.4-8.2) g/dL Albumin (3.4-5.0) g/dL Globulin (2.6-4.0) g/dL Albumin/Globulin Ratio (0.9-1.6) Lipase (73-393) U/L SARS-CoV-2 RNA (NATHALIE) (NEGATIVE) Blood Type Antibody Screen 01/22/21 01/22/21 Range/Units 05:35 05:35 WBC 5.74 (4.0-11.0) K/uL RBC 3.10 L (4.50-5.90) M/uL Hgb 9.2 L (13.0-17.0) g/dL Hct 26.2 L (38.0-50.0) % MCV 84.5 (80.0-98.0) fL MCH 29.7 (27.0-32.0) pg MCHC 35.1 (31.0-37.0) g/dL RDW Std Deviation 44.6 (28.0-62.0) fl RDW Coeff of Reji 15 (11.0-15.0) % Plt Count 178 (150-400) K/uL MPV 8.90 (7.40-12.00) fL Neut % (Auto) 62.1 (48.0-80.0) % Lymph % (Auto) 26.7 (16.0-40.0) % Nicholas % (Auto) 8.4 (0.0-15.0) % Eos % (Auto) 2.6 (0.0-7.0) % Baso % (Auto) 0.2 (0.0-1.5) % Neut # (Auto) 3.6 (1.4-5.7) K/uL Lymph # (Auto) 1.5 (0.6-2.4) K/uL Nicholas # (Auto) 0.5 (0.0-0.8) K/uL Eos # (Auto) 0.2 (0.0-0.7) K/uL Baso # (Auto) 0.0 (0.0-0.1) K/uL Nucleated RBC % 0.0 /100WBC Nucleated RBCs # 0 K/uL INR APTT (18.6-31.3) SEC Sodium 140 (136-148) mmol/L Potassium 4.1 (3.5-5.1) mmol/L Chloride 108 H (98-107) mmol/L Carbon Dioxide 24.7 (21.0-32.0) mmol/L BUN 22 H (7.0-18.0) mg/dL Creatinine 1.0 (0.8-1.3) mg/dL Est Cr Clr Drug Dosing 77.90 mL/min Estimated GFR (MDRD) > 60.0 ml/min Glucose 99 (74-106) mg/dL Lactic Acid (0.4-2.0) mmol/L Calcium 7.9 L (8.5-10.1) mg/dL Magnesium (1.8-2.4) mg/dL Total Bilirubin (0.2-1.0) mg/dL AST (15-37) IU/L ALT (14-63) IU/L Alkaline Phosphatase (46-116) U/L Troponin I (0.000-0.056) ng/mL Total Protein (6.4-8.2) g/dL Albumin (3.4-5.0) g/dL Globulin (2.6-4.0) g/dL Albumin/Globulin Ratio (0.9-1.6) Lipase (73-393) U/L SARS-CoV-2 RNA (NATHALIE) (NEGATIVE) Blood Type Antibody Screen Med Orders - Current: Current Medications Sodium Chloride (Normal Saline) 1,000 mls @ 125 mls/hr IV Q8H [facility] Last Admin: 01/22/21 07:46 Dose: 125 mls/hr Documented by: Pantoprazole Sodium 40 mg/ (Sodium Chloride) 10 mls @ 300 mls/hr IV Q12H BERNIE Last Admin: 01/21/21 22:00 Dose: 300 mls/hr Documented by: Ondansetron HCl (Ondansetron 4 Mg/2 Ml Sdv) 4 mg IVPUSH Q4H PRN PRN Reason: Nausea Sodium Chloride (Sodium Chloride 0.9% 2.5 Ml Syringe) 2.5 ml FLUSH ASDIRECTED PRN PRN Reason: Keep Vein Open Discontinued Medications Sodium Chloride (Normal Saline) 1,000 mls @ 999 mls/hr IV .Bolus ONE Stop: 01/21/21 11:05 Last Admin: 01/21/21 10:23 Dose: 999 mls/hr Documented by: Pantoprazole Sodium 80 mg/ (Sodium Chloride) 20 mls @ 420 mls/hr IVPUSH ONETIME ONE Stop: 01/21/21 10:24 Last Admin: 01/21/21 10:28 Dose: 420 mls/hr Documented by: Sodium Chloride (Normal Saline) 1,000 mls @ 999 mls/hr IV .Bolus ONE Stop: 01/21/21 12:25 Last Admin: 01/21/21 11:34 Dose: 999 mls/hr Documented by: Iopamidol (Iopamidol 755 Mg/Ml 500 Ml Multipack Bottle) 100 ml IVPUSH ONETIME STA Stop: 01/21/21 11:36 Last Admin: 01/21/21 11:36 Dose: 100 ml Documented by: - Exam Quality Assessment: DVT Prophylaxis (SCDs only). No: Supplemental Oxygen General: Alert, Oriented, Cooperative, No Acute Distress Lungs: Clear to Auscultation, Normal Respiratory Effort Cardiovascular: Regular Rate, Regular Rhythm GI/Abdominal Exam: Normal Bowel Sounds, Soft, Non-Tender, Other (Small black stool this morning) Extremities: Normal Inspection, Normal Range of Motion, Non-Tender, No Pedal Edema Neurological: No New Focal Deficit Psy/Mental Status: Alert, Normal Affect, Normal Mood - Patient Data Lab Results Last 24 hrs: Laboratory Results - last 24 hr 01/21/21 01/21/21 01/21/21 Range/Units 10:03 10:04 10:04 WBC 11.59 H (4.0-11.0) K/uL RBC 4.31 L (4.50-5.90) M/uL Hgb 12.6 L (13.0-17.0) g/dL Hct 36.2 L (38.0-50.0) % MCV 84.0 (80.0-98.0) fL MCH 29.2 (27.0-32.0) pg MCHC 34.8 (31.0-37.0) g/dL RDW Std Deviation 43.3 (28.0-62.0) fl RDW Coeff of Reji 14 (11.0-15.0) % Plt Count 318 (150-400) K/uL MPV 9.20 (7.40-12.00) fL Neut % (Auto) 51.6 (48.0-80.0) % Lymph % (Auto) 37.4 (16.0-40.0) % Nicholas % (Auto) 8.3 (0.0-15.0) % Eos % (Auto) 2.2 (0.0-7.0) % Baso % (Auto) 0.5 (0.0-1.5) % Neut # (Auto) 6.0 H (1.4-5.7) K/uL Lymph # (Auto) 4.3 H (0.6-2.4) K/uL Nicholas # (Auto) 1.0 H (0.0-0.8) K/uL Eos # (Auto) 0.3 (0.0-0.7) K/uL Baso # (Auto) 0.1 (0.0-0.1) K/uL Nucleated RBC % 0.0 /100WBC Nucleated RBCs # 0 K/uL INR APTT (18.6-31.3) SEC Sodium (136-148) mmol/L Potassium (3.5-5.1) mmol/L Chloride (98-107) mmol/L Carbon Dioxide (21.0-32.0) mmol/L BUN (7.0-18.0) mg/dL Creatinine (0.8-1.3) mg/dL Est Cr Clr Drug Dosing mL/min Estimated GFR (MDRD) ml/min Glucose (74-106) mg/dL Lactic Acid (0.4-2.0) mmol/L Calcium (8.5-10.1) mg/dL Magnesium (1.8-2.4) mg/dL Total Bilirubin (0.2-1.0) mg/dL AST (15-37) IU/L ALT (14-63) IU/L Alkaline Phosphatase (46-116) U/L Troponin I (0.000-0.056) ng/mL Total Protein (6.4-8.2) g/dL Albumin (3.4-5.0) g/dL Globulin (2.6-4.0) g/dL Albumin/Globulin Ratio (0.9-1.6) Lipase (73-393) U/L SARS-CoV-2 RNA (NATHALIE) NEGATIVE (NEGATIVE) Blood Type O NEGATIVE Antibody Screen NEGATIVE 01/21/21 01/21/21 01/21/21 Range/Units 10:04 10:04 10:04 WBC (4.0-11.0) K/uL RBC (4.50-5.90) M/uL Hgb (13.0-17.0) g/dL Hct (38.0-50.0) % MCV (80.0-98.0) fL MCH (27.0-32.0) pg MCHC (31.0-37.0) g/dL RDW Std Deviation (28.0-62.0) fl RDW Coeff of Reji (11.0-15.0) % Plt Count (150-400) K/uL MPV (7.40-12.00) fL Neut % (Auto) (48.0-80.0) % Lymph % (Auto) (16.0-40.0) % Nicholas % (Auto) (0.0-15.0) % Eos % (Auto) (0.0-7.0) % Baso % (Auto) (0.0-1.5) % Neut # (Auto) (1.4-5.7) K/uL Lymph # (Auto) (0.6-2.4) K/uL Nicholas # (Auto) (0.0-0.8) K/uL Eos # (Auto) (0.0-0.7) K/uL Baso # (Auto) (0.0-0.1) K/uL Nucleated RBC % /100WBC Nucleated RBCs # K/uL INR 1.05 APTT 24.1 (18.6-31.3) SEC Sodium 136 (136-148) mmol/L Potassium 4.6 (3.5-5.1) mmol/L Chloride 104 (98-107) mmol/L Carbon Dioxide 25.1 (21.0-32.0) mmol/L BUN 50 H (7.0-18.0) mg/dL Creatinine 1.1 (0.8-1.3) mg/dL Est Cr Clr Drug Dosing 70.82 mL/min Estimated GFR (MDRD) > 60.0 ml/min Glucose 158 H (74-106) mg/dL Lactic Acid 2.4 H* (0.4-2.0) mmol/L Calcium 8.0 L (8.5-10.1) mg/dL Magnesium 2.2 (1.8-2.4) mg/dL Total Bilirubin 0.6 (0.2-1.0) mg/dL AST 15 (15-37) IU/L ALT 24 (14-63) IU/L Alkaline Phosphatase 65 (46-116) U/L Troponin I < 0.050 (0.000-0.056) ng/mL Total Protein 6.5 (6.4-8.2) g/dL Albumin 3.4 (3.4-5.0) g/dL Globulin 3.1 (2.6-4.0) g/dL Albumin/Globulin Ratio 1.1 (0.9-1.6) Lipase 73 (73-393) U/L SARS-CoV-2 RNA (NATHALIE) (NEGATIVE) Blood Type Antibody Screen 01/21/21 01/21/21 01/21/21 Range/Units 15:17 15:17 23:40 WBC (4.0-11.0) K/uL RBC (4.50-5.90) M/uL Hgb 11.5 L 9.9 L (13.0-17.0) g/dL Hct 32.9 L 28.2 L (38.0-50.0) % MCV (80.0-98.0) fL MCH (27.0-32.0) pg MCHC (31.0-37.0) g/dL RDW Std Deviation (28.0-62.0) fl RDW Coeff of Reji (11.0-15.0) % Plt Count (150-400) K/uL MPV (7.40-12.00) fL Neut % (Auto) (48.0-80.0) % Lymph % (Auto) (16.0-40.0) % Nicholas % (Auto) (0.0-15.0) % Eos % (Auto) (0.0-7.0) % Baso % (Auto) (0.0-1.5) % Neut # (Auto) (1.4-5.7) K/uL Lymph # (Auto) (0.6-2.4) K/uL Nicholas # (Auto) (0.0-0.8) K/uL Eos # (Auto) (0.0-0.7) K/uL Baso # (Auto) (0.0-0.1) K/uL Nucleated RBC % /100WBC Nucleated RBCs # K/uL INR APTT (18.6-31.3) SEC Sodium (136-148) mmol/L Potassium (3.5-5.1) mmol/L Chloride (98-107) mmol/L Carbon Dioxide (21.0-32.0) mmol/L BUN (7.0-18.0) mg/dL Creatinine (0.8-1.3) mg/dL Est Cr Clr Drug Dosing mL/min Estimated GFR (MDRD) ml/min Glucose (74-106) mg/dL Lactic Acid 1.5 (0.4-2.0) mmol/L Calcium (8.5-10.1) mg/dL Magnesium (1.8-2.4) mg/dL Total Bilirubin (0.2-1.0) mg/dL AST (15-37) IU/L ALT (14-63) IU/L Alkaline Phosphatase (46-116) U/L Troponin I (0.000-0.056) ng/mL Total Protein (6.4-8.2) g/dL Albumin (3.4-5.0) g/dL Globulin (2.6-4.0) g/dL Albumin/Globulin Ratio (0.9-1.6) Lipase (73-393) U/L SARS-CoV-2 RNA (NATHALIE) (NEGATIVE) Blood Type Antibody Screen 01/22/21 01/22/21 Range/Units 05:35 05:35 WBC 5.74 (4.0-11.0) K/uL RBC 3.10 L (4.50-5.90) M/uL Hgb 9.2 L (13.0-17.0) g/dL Hct 26.2 L (38.0-50.0) % MCV 84.5 (80.0-98.0) fL MCH 29.7 (27.0-32.0) pg MCHC 35.1 (31.0-37.0) g/dL RDW Std Deviation 44.6 (28.0-62.0) fl RDW Coeff of Reji 15 (11.0-15.0) % Plt Count 178 (150-400) K/uL MPV 8.90 (7.40-12.00) fL Neut % (Auto) 62.1 (48.0-80.0) % Lymph % (Auto) 26.7 (16.0-40.0) % Nicholas % (Auto) 8.4 (0.0-15.0) % Eos % (Auto) 2.6 (0.0-7.0) % Baso % (Auto) 0.2 (0.0-1.5) % Neut # (Auto) 3.6 (1.4-5.7) K/uL Lymph # (Auto) 1.5 (0.6-2.4) K/uL Nicholas # (Auto) 0.5 (0.0-0.8) K/uL Eos # (Auto) 0.2 (0.0-0.7) K/uL Baso # (Auto) 0.0 (0.0-0.1) K/uL Nucleated RBC % 0.0 /100WBC Nucleated RBCs # 0 K/uL INR APTT (18.6-31.3) SEC Sodium 140 (136-148) mmol/L Potassium 4.1 (3.5-5.1) mmol/L Chloride 108 H (98-107) mmol/L Carbon Dioxide 24.7 (21.0-32.0) mmol/L BUN 22 H (7.0-18.0) mg/dL Creatinine 1.0 (0.8-1.3) mg/dL Est Cr Clr Drug Dosing 77.90 mL/min Estimated GFR (MDRD) > 60.0 ml/min Glucose 99 (74-106) mg/dL Lactic Acid (0.4-2.0) mmol/L Calcium 7.9 L (8.5-10.1) mg/dL Magnesium (1.8-2.4) mg/dL Total Bilirubin (0.2-1.0) mg/dL AST (15-37) IU/L ALT (14-63) IU/L Alkaline Phosphatase (46-116) U/L Troponin I (0.000-0.056) ng/mL Total Protein (6.4-8.2) g/dL Albumin (3.4-5.0) g/dL Globulin (2.6-4.0) g/dL Albumin/Globulin Ratio (0.9-1.6) Lipase (73-393) U/L SARS-CoV-2 RNA (NATHALIE) (NEGATIVE) Blood Type Antibody Screen Result Diagrams: 01/22/21 05:35 01/22/21 05:35 Sepsis Event Note - Evaluation Sepsis Screening Result: No Definite Risk - Focused Exam Vital Signs: Vital Signs Temp Pulse Resp BP Pulse Ox 01/22/21 04:00 97.4 F 71 17 102/59 L 97 01/22/21 00:00 98.1 F 80 16 120/63 97 - Problem List & Annotations (1) UGIB (upper gastrointestinal bleed) SNOMED Code(s): 25698860 Code(s): K92.2 - GASTROINTESTINAL HEMORRHAGE, UNSPECIFIED Status: Acute Current Visit: Yes (2) Hypertension SNOMED Code(s): 51130162 Code(s): I10 - ESSENTIAL (PRIMARY) HYPERTENSION Status: Chronic Current Visit: Yes (3) Obesity SNOMED Code(s): 508575053, 951583165 Code(s): E66.9 - OBESITY, UNSPECIFIED Status: Chronic Current Visit: Yes (4) ANNETTE (obstructive sleep apnea) SNOMED Code(s): 48023270 Code(s): G47.33 - OBSTRUCTIVE SLEEP APNEA (ADULT) (PEDIATRIC) Status: Chronic Current Visit: Yes - Problem List Review Problem List Initiated/Reviewed/Updated: Yes - My Orders Last 24 Hours: My Active Orders 01/21/21 15:01 Intake and Output [RC] Q12H Oxygen Therapy [RC] PRN Peripheral IV Care [RC] . DIRECTED Up With Assistance [RC] ASDIRECTED VTE/DVT Education [RC] PER UNIT ROUTINE Vital Signs [RC] Q4H Ondansetron [Zofran] 4 mg IVPUSH Q4H PRN Sodium Chloride 0.9% [Saline Flush] 2.5 ml FLUSH ASDIRECTED PRN Peripheral IV Insertion Adult [OM.PC] Routine Saline Lock Insert [OM.PC] Routine VTE Pharmacological Contraindications [AST] Per Unit Routine Resuscitation Status Routine 01/21/21 15:02 Antiembolic Devices [RC] PER UNIT ROUTINE Sequential Compression Device [OM.PC] Per Unit Routine 01/21/21 15:15 Sodium Chloride 0.9% [Normal Saline] 1,000 ml IV Q8H 01/21/21 15:23 Consult to Physician [CONS] Routine 01/21/21 15:24 Notify Provider Consults [RC] ASDIRECTED - Plan Plan:: This 60-year-old male admitted with upper GI bleed 1. Upper GI bleed -Repeat H&H this evening hemoglobin 9 today. Stable no significant amounts of stool to suggest continued active bleeding -Blood pressure stable heart rate has improved from tachycardia on arrival. -Guaiac positive in the ER -Protonix 40 mg every 12 IV -Normal saline 125 mL/h -Clear liquid today start prep for colonoscopy/EGD this afternoon. N.p.o. after midnight scope tomorrow -Consult Dr. Tom Dumont, general surgery for endoscopy 2. HTN/ANNETTE -Hold losartan for now VTE prophylaxis: SCDs and ambulation only due to current bleeding GI prophylaxis: Protonix CODE STATUS: Full code Dispo: 2 days pending improvement
[2021-01-22] MEDS: Pantoprazole 40 MG in Sodium Chloride 0.9% 10 ML IV SCH ×2 (09:50→20:55)
[2021-01-22] MEDS: Bisacodyl 5 MG Tab PO SCH ×2 (13:00→20:55)
--- NOTE | 2021-01-22 13:38 | PN ---
SUBJECTIVE: The patient is resting comfortably in his hospital bed. He is alert and oriented in no acute distress. The patient was seen this morning. The patient says that he has not had any more dark bowel movements. His last bowel was actually yesterday. He denies any pain or discomfort and is feeling pretty good this morning. OBJECTIVE: ABDOMEN: Soft, nontender, and nondistended. DATA: Hemoglobin has dropped down to 9.2. ASSESSMENT/PLAN: The patient is a pleasant 60-year-old gentleman who says for 3 days, he had some very dark stools. He says this has happened off and on over the last couple of years. Today, he actually said about 5 years ago, he had a very similar episode of dark stools for which he was hospitalized here at that time. They did not do any scope they just kind of passed on their own. The patient is scheduled to get his colonoscopy and EGD tomorrow. We will do his bowel prep today. He has a drop in his hemoglobin. This could just be with hydration rather than continued acute bleed. The patient says he has not had any bowel movements for over 24 hours. Likely, the bleeding has stopped or is minimal. I did go over with the patient again what EGD was and colonoscopy. Went over, we may or may not find a cause of this bleeding. Patient does say now that he does take quite a few Excedrin for headaches that he has on occasion. I did go over that he should limit this because that can cause gastritis or ulcerations. All the patient's questions were answered. He will do his bowel prep today with plan for colonoscopy and EGD tomorrow. Did discuss the plan with the Medicine team. JUD BERNSTEIN /[id number] PEARL
[2021-01-22] MEDS ORDERED: Polyethylene Glycol 3350 Powder 17 GM Packet PO SCH (16:00)
[2021-01-23] MEDS: Sodium Chloride 0.9% 1,000 ML IV SCH ×2 (00:20→08:23)
[2021-01-23 06:25] LABS: BLOOD UREA NITROGEN,BUN 10 mg/dL (7.0-18.0); CARBON DIOXIDE,CO2 22.9 mmol/L (21.0-32.0); CHLORIDE,CL 109 mmol/L (98-107); GLUCOSE RANDOM 90 mg/dL (74-106); POTASSIUM,K 3.9 mmol/L (3.5-5.1); SODIUM,NA 139 mmol/L (136-148)
[2021-01-23] MEDS: Pantoprazole 40 MG in Sodium Chloride 0.9% 10 ML IV SCH (08:23)
--- NOTE | 2021-01-23 11:34 | PN ---
SUBJECTIVE: The patient was seen this morning. He says things are going well. He has no complaints. He feels the bowel prep went very well. He says he had some large bowel movements. At first, it was slightly dark but then it became brown, and now he is just having some clear slightly greenish fluid, but majority of his bowel movements were normal in color he said. He denies any lightheadedness or dizziness. OBJECTIVE: GENERAL: Sitting comfortably in room. He is alert and oriented, in no acute distress. ABDOMEN: Soft, nontender, and nondistended. VITAL SIGNS: Temperature is 96.9, pulse is 70, blood pressure is 115/66, and 99% on room air. LABORATORY DATA: Hemoglobin did go down to 7.9, BUN is back down to 10. ASSESSMENT/PLAN: The patient is a pleasant 60-year-old gentleman who had a couple days of very dark stools. He has had issues in the past with this. The patient denies any abdominal pain. Has not seen any bright red stools. Did have a drop in his hemoglobin, however, he has not had any dark or bloody stools with the bowel prep for his colonoscopy. No more dark stools, it has been brown and now liquid green. I did go over with the patient that we will do the colonoscopy and EGD today. I went over we may not find a source of his bleeding. The patient understands. All his questions were answered. JUD BERNSTEIN /[id number] PEARL
--- NOTE | 2021-01-23 11:35 | PCM.PREANE ---
Preanesthetic Assessment - Procedure Proposed Procedure: EGD, Colonoscopy - Anesthesia/Transfusion/Family Hx Anesthesia History: Prior Anesthesia Without Reaction Transfusion History: No Prior Transfusion(s) - Review of Systems General: No Symptoms Pulmonary: No Symptoms (ANNETTE does NOT use CPAP) Cardiovascular: No Symptoms (HTN) Gastrointestinal: Melena, Other (likely GI Bleed with severe drop in H/H) Neurological: No Symptoms Other: Reports: None - Physical Assessment NPO Status Date: 01/22/21 NPO Status Time: 17:00 Vital Signs: Last Vital Signs Temp 96.9 F 01/23/21 07:57 Pulse 70 01/23/21 07:57 Resp 22 H 01/23/21 07:57 BP 115/66 01/23/21 07:57 Pulse Ox 99 01/23/21 07:57 Height: 5 ft 8 in Weight: 94.937 kg ASA Class: 3 Mental Status: Alert & Oriented x3 Dentition: Reports: Normal Dentition Thyro-Mental Finger Breadths: 3 Mouth Opening Finger Breadths: 3 ROM/Head Extension: Full Lungs: Clear to Auscultation, Normal Respiratory Effort Cardiovascular: Regular Rate, Regular Rhythm - Lab Values: Laboratory Last Values WBC 5.16 K/uL (4.0-11.0) 01/23/21 05:20 RBC 2.72 M/uL (4.50-5.90) L 01/23/21 05:20 Hgb 7.9 g/dL (13.0-17.0) L 01/23/21 05:20 Hct 22.7 % (38.0-50.0) L 01/23/21 05:20 MCV 83.5 fL (80.0-98.0) 01/23/21 05:20 MCH 29.0 pg (27.0-32.0) 01/23/21 05:20 MCHC 34.8 g/dL (31.0-37.0) 01/23/21 05:20 RDW Std Deviation 43.9 fl (28.0-62.0) 01/23/21 05:20 RDW Coeff of Reji 15 % (11.0-15.0) 01/23/21 05:20 Plt Count 152 K/uL (150-400) 01/23/21 05:20 MPV 8.90 fL (7.40-12.00) 01/23/21 05:20 Neut % (Auto) 62.0 % (48.0-80.0) 01/23/21 05:20 Lymph % (Auto) 27.3 % (16.0-40.0) 01/23/21 05:20 [place] % (Auto) 6.8 % (0.0-15.0) 01/23/21 05:20 Eos % (Auto) 3.5 % (0.0-7.0) 01/23/21 05:20 Baso % (Auto) 0.4 % (0.0-1.5) 01/23/21 05:20 Neut # (Auto) 3.2 K/uL (1.4-5.7) 01/23/21 05:20 Lymph # (Auto) 1.4 K/uL (0.6-2.4) 01/23/21 05:20 [place] # (Auto) 0.4 K/uL (0.0-0.8) 01/23/21 05:20 Eos # (Auto) 0.2 K/uL (0.0-0.7) 01/23/21 05:20 Baso # (Auto) 0.0 K/uL (0.0-0.1) 01/23/21 05:20 Nucleated RBC % 0.0 /100WBC 01/23/21 05:20 Nucleated RBCs # 0 K/uL 01/23/21 05:20 INR 1.05 01/21/21 10:04 APTT 24.1 SEC (18.6-31.3) 01/21/21 10:04 Sodium 139 mmol/L (136-148) 01/23/21 05:20 Potassium 3.9 mmol/L (3.5-5.1) 01/23/21 05:20 Chloride 109 mmol/L (98-107) H 01/23/21 05:20 Carbon Dioxide 22.9 mmol/L (21.0-32.0) 01/23/21 05:20 BUN 10 mg/dL (7.0-18.0) 01/23/21 05:20 Creatinine 0.9 mg/dL (0.8-1.3) 01/23/21 05:20 Est Cr Clr Drug Dosing 86.56 mL/min 01/23/21 05:20 Estimated GFR (MDRD) > 60.0 ml/min 01/23/21 05:20 Glucose 90 mg/dL (74-106) 01/23/21 05:20 Lactic Acid 1.5 mmol/L (0.4-2.0) 01/21/21 15:17 Calcium 8.0 mg/dL (8.5-10.1) L 01/23/21 05:20 Magnesium 2.2 mg/dL (1.8-2.4) 01/21/21 10:04 Total Bilirubin 0.6 mg/dL (0.2-1.0) 01/21/21 10:04 AST 15 IU/L (15-37) 01/21/21 10:04 ALT 24 IU/L (14-63) 01/21/21 10:04 Alkaline Phosphatase 65 U/L (46-116) 01/21/21 10:04 Troponin I < 0.050 ng/mL (0.000-0.056) 01/21/21 10:04 Total Protein 6.5 g/dL (6.4-8.2) 01/21/21 10:04 Albumin 3.4 g/dL (3.4-5.0) 01/21/21 10:04 Globulin 3.1 g/dL (2.6-4.0) 01/21/21 10:04 Albumin/Globulin Ratio 1.1 (0.9-1.6) 01/21/21 10:04 Lipase 73 U/L (73-393) 01/21/21 10:04 SARS-CoV-2 RNA (NATHALIE) NEGATIVE (NEGATIVE) 01/21/21 10:04 Blood Type O NEGATIVE 01/23/21 09:33 Antibody Screen NEGATIVE 01/23/21 09:33 Crossmatch See Detail 01/23/21 09:33 - Allergies Allergies/Adverse Reactions: Allergies Allergy/AdvReac Type Severity Reaction Status Date / Time No Known Allergies Allergy Verified 01/21/21 15:24 - Acknowledgements Anesthesia Type Planned: General Anesthesia Pt an Appropriate Candidate for the Planned Anesthesia: Yes Alternatives and Risks of Anesthesia Discussed w Pt/Guardian: Yes Pt/Guardian Understands and Agrees with Anesthesia Plan: Yes PreAnesthesia Questionnaire - Past Health History Medical/Surgical History: Denies Medical/Surgical History HEENT History: Reports: Impaired Vision Other HEENT History: reading glasses Cardiovascular History: Reports: Hypertension. Denies: Afib, Blood Clots/VTE/DVT, CAD, LA, Stents Respiratory History: Reports: Sleep Apnea Gastrointestinal History: Reports: GERD (Has been's consult hiatal hernia surgery), Hiatal Hernia (Surgery approximately 15 years ago to correct this) Genitourinary History: Reports: None. Denies: Acute Renal Failure Musculoskeletal History: Reports: None Neurological History: Reports: None Psychiatric History: Reports: None Endocrine/Metabolic History: Reports: Obesity/BMI 30+. Denies: Diabetes, Type II Hematologic History: Reports: None Immunologic History: Reports: None Oncologic (Cancer) History: Reports: None Dermatologic History: Reports: None - Infectious Disease History Infectious Disease History: Reports: None - Past Surgical History Head Surgeries/Procedures: Reports: None GI Surgical History: Reports: Hernia Repair/Other (Hiatal hernia laparoscopic surgery 15 years ago to correct) Endocrine Surgical History: Reports: None Musculoskeletal Surgical History: Reports: None - SUBSTANCE USE Tobacco Use Status *Q: Never Tobacco User Second Hand Smoke Exposure: No Days Per Week of Alcohol Use: 2 Number of Drinks Per Day: 2 Total Drinks Per Week: 4 Recreational Drug Use History: No - HOME MEDS Home Medications: Home Meds Losartan Potassium 50 mg PO DAILY 01/21/21 [History] - CURRENT (IN HOUSE) MEDS Current Meds: Current Medications Sodium Chloride (Normal Saline) 1,000 mls @ 125 mls/hr IV Q8H [facility] Last Admin: 01/23/21 08:23 Dose: 125 mls/hr Documented by: Pantoprazole Sodium 40 mg/ (Sodium Chloride) 10 mls @ 300 mls/hr IV Q12H [facility] Last Admin: 01/23/21 08:23 Dose: 300 mls/hr Documented by: Ondansetron HCl (Ondansetron 4 Mg/2 Ml Sdv) 4 mg IVPUSH Q4H PRN PRN Reason: Nausea Sodium Chloride (Sodium Chloride 0.9% 2.5 Ml Syringe) 2.5 ml FLUSH ASDIRECTED PRN PRN Reason: Keep Vein Open Discontinued Medications Bisacodyl (Bisacodyl 5 Mg Tab) 10 mg PO BID@1200,2000 [facility] Stop: 01/22/21 20:01 Last Admin: 01/22/21 20:55 Dose: 10 mg Documented by: Sodium Chloride (Normal Saline) 1,000 mls @ 999 mls/hr IV .Bolus ONE Stop: 01/21/21 11:05 Last Admin: 01/21/21 10:23 Dose: 999 mls/hr Documented by: Pantoprazole Sodium 80 mg/ (Sodium Chloride) 20 mls @ 420 mls/hr IVPUSH ONETIME ONE Stop: 01/21/21 10:24 Last Admin: 01/21/21 10:28 Dose: 420 mls/hr Documented by: Sodium Chloride (Normal Saline) 1,000 mls @ 999 mls/hr IV .Bolus ONE Stop: 01/21/21 12:25 Last Admin: 01/21/21 11:34 Dose: 999 mls/hr Documented by: Iopamidol (Iopamidol 755 Mg/Ml 500 Ml Multipack Bottle) 100 ml IVPUSH ONETIME STA Stop: 01/21/21 11:36 Last Admin: 01/21/21 11:36 Dose: 100 ml Documented by: Polyethylene Glycol (Polyethylene Glycol 3350 Powder 17 Gm Packet) 238 gm PO 01/22/21@1600 [facility] Stop: 01/22/21 16:01 Last Admin: 01/22/21 18:42 Dose: 238 gm Documented by:
[2021-01-23] MEDS ORDERED: propofoL 50 ML ONE (12:44)
[2021-01-23] MEDS ORDERED: fentaNYL 100 MCG/2 ML SDV ONE (12:47)
--- NOTE | 2021-01-23 12:56 | PCM.PN ---
- General Info Date of Service: 01/23/21 Admission Dx/Problem (Free Text): Admission Diagnosis/Problem Admission Diagnosis/Problem Upper gastrointestinal hemorrhage Subjective Update: Feeling okay today. Tolerated prep for colonoscopy well stool this morning reports with light yellow. Denies any black or bloody bowel movements since prep started. Denies any lightheadedness dizziness or chest pain. Reports that he feels tired from getting up multiple times during the night to use the bathroom. Very eager to be discharged home later today. Functional Status: Reports: Pain Controlled, Ambulating, Urinating - Review of Systems General: Reports: No Symptoms. Denies: Weakness, Fatigue, Malaise HEENT: Reports: No Symptoms. Denies: Headaches, Sore Throat, Visual Changes Pulmonary: Reports: No Symptoms. Denies: Shortness of Breath Cardiovascular: Reports: No Symptoms. Denies: Chest Pain Gastrointestinal: Reports: No Symptoms. Denies: Abdominal Pain, Nausea, Vomiting Genitourinary: Reports: No Symptoms. Denies: Dysuria, Frequency Musculoskeletal: Reports: No Symptoms Skin: Reports: No Symptoms Neurological: Reports: No Symptoms Psychiatric: Reports: No Symptoms - Patient Data Vitals - Most Recent: Last Vital Signs Temp 96.6 F L 01/23/21 12:00 Pulse 73 01/23/21 12:00 Resp 20 01/23/21 12:00 BP 111/62 01/23/21 12:00 Pulse Ox 99 01/23/21 12:00 Weight - Most Recent: 94.937 kg I&O - Last 24 Hours: Intake & Output 01/22/21 01/23/21 01/23/21 22:59 06:59 14:59 Intake Total 720 2307 Output Total 800 0 Balance -80 2307 Lab Results Last 24 Hours: Laboratory Results - last 24 hr 01/21/21 01/22/21 01/23/21 Range/Units 11:47 18:15 05:20 WBC 5.16 (4.0-11.0) K/uL RBC 2.72 L (4.50-5.90) M/uL Hgb 9.0 L 7.9 L (13.0-17.0) g/dL Hct 25.6 L 22.7 L (38.0-50.0) % MCV 83.5 (80.0-98.0) fL MCH 29.0 (27.0-32.0) pg MCHC 34.8 (31.0-37.0) g/dL RDW Std Deviation 43.9 (28.0-62.0) fl RDW Coeff of Reji 15 (11.0-15.0) % Plt Count 152 (150-400) K/uL MPV 8.90 (7.40-12.00) fL Neut % (Auto) 62.0 (48.0-80.0) % Lymph % (Auto) 27.3 (16.0-40.0) % [place] % (Auto) 6.8 (0.0-15.0) % Eos % (Auto) 3.5 (0.0-7.0) % Baso % (Auto) 0.4 (0.0-1.5) % Neut # (Auto) 3.2 (1.4-5.7) K/uL Lymph # (Auto) 1.4 (0.6-2.4) K/uL [place] # (Auto) 0.4 (0.0-0.8) K/uL Eos # (Auto) 0.2 (0.0-0.7) K/uL Baso # (Auto) 0.0 (0.0-0.1) K/uL Nucleated RBC % 0.0 /100WBC Nucleated RBCs # 0 K/uL Sodium (136-148) mmol/L Potassium (3.5-5.1) mmol/L Chloride (98-107) mmol/L Carbon Dioxide (21.0-32.0) mmol/L BUN (7.0-18.0) mg/dL Creatinine (0.8-1.3) mg/dL Est Cr Clr Drug Dosing mL/min Estimated GFR (MDRD) ml/min Glucose (74-106) mg/dL Calcium (8.5-10.1) mg/dL Blood Type Antibody Screen Crossmatch See Detail 01/23/21 01/23/21 Range/Units 05:20 09:33 WBC (4.0-11.0) K/uL RBC (4.50-5.90) M/uL Hgb (13.0-17.0) g/dL Hct (38.0-50.0) % MCV (80.0-98.0) fL MCH (27.0-32.0) pg MCHC (31.0-37.0) g/dL RDW Std Deviation (28.0-62.0) fl RDW Coeff of Reji (11.0-15.0) % Plt Count (150-400) K/uL MPV (7.40-12.00) fL Neut % (Auto) (48.0-80.0) % Lymph % (Auto) (16.0-40.0) % [place] % (Auto) (0.0-15.0) % Eos % (Auto) (0.0-7.0) % Baso % (Auto) (0.0-1.5) % Neut # (Auto) (1.4-5.7) K/uL Lymph # (Auto) (0.6-2.4) K/uL [place] # (Auto) (0.0-0.8) K/uL Eos # (Auto) (0.0-0.7) K/uL Baso # (Auto) (0.0-0.1) K/uL Nucleated RBC % /100WBC Nucleated RBCs # K/uL Sodium 139 (136-148) mmol/L Potassium 3.9 (3.5-5.1) mmol/L Chloride 109 H (98-107) mmol/L Carbon Dioxide 22.9 (21.0-32.0) mmol/L BUN 10 (7.0-18.0) mg/dL Creatinine 0.9 (0.8-1.3) mg/dL Est Cr Clr Drug Dosing 86.56 mL/min Estimated GFR (MDRD) > 60.0 ml/min Glucose 90 (74-106) mg/dL Calcium 8.0 L (8.5-10.1) mg/dL Blood Type O NEGATIVE Antibody Screen NEGATIVE Crossmatch See Detail Med Orders - Current: Current Medications Pantoprazole Sodium 40 mg/ (Sodium Chloride) 10 mls @ 300 mls/hr IV Q12H [facility] Last Admin: 01/23/21 08:23 Dose: 300 mls/hr Documented by: Ondansetron HCl (Ondansetron 4 Mg/2 Ml Sdv) 4 mg IVPUSH Q4H PRN PRN Reason: Nausea Sodium Chloride (Sodium Chloride 0.9% 2.5 Ml Syringe) 2.5 ml FLUSH ASDIRECTED PRN PRN Reason: Keep Vein Open Discontinued Medications Bisacodyl (Bisacodyl 5 Mg Tab) 10 mg PO BID@1200,2000 [facility] Stop: 01/22/21 20:01 Last Admin: 01/22/21 20:55 Dose: 10 mg Documented by: Fentanyl (Fentanyl 100 Mcg/2 Ml Sdv) Confirm Administered Dose 100 mcg .ROUTE .STK-MED ONE Stop: 01/23/21 12:48 Sodium Chloride (Normal Saline) 1,000 mls @ 999 mls/hr IV .Bolus ONE Stop: 01/21/21 11:05 Last Admin: 01/21/21 10:23 Dose: 999 mls/hr Documented by: Pantoprazole Sodium 80 mg/ (Sodium Chloride) 20 mls @ 420 mls/hr IVPUSH ONETIME ONE Stop: 01/21/21 10:24 Last Admin: 01/21/21 10:28 Dose: 420 mls/hr Documented by: Sodium Chloride (Normal Saline) 1,000 mls @ 999 mls/hr IV .Bolus ONE Stop: 01/21/21 12:25 Last Admin: 01/21/21 11:34 Dose: 999 mls/hr Documented by: Sodium Chloride (Normal Saline) 1,000 mls @ 125 mls/hr IV Q8H [facility] Last Admin: 01/23/21 08:23 Dose: 125 mls/hr Documented by: Propofol (Diprivan 50 Ml) Confirm Administered Dose 50 mls @ as directed .ROUTE .STK-MED ONE Stop: 01/23/21 12:45 Iopamidol (Iopamidol 755 Mg/Ml 500 Ml Multipack Bottle) 100 ml IVPUSH ONETIME STA Stop: 01/21/21 11:36 Last Admin: 01/21/21 11:36 Dose: 100 ml Documented by: Lidocaine HCl (Lidocaine 1% 5 Ml Sdv) Confirm Administered Dose 5 ml .ROUTE .STK-MED ONE Stop: 01/23/21 12:48 Polyethylene Glycol (Polyethylene Glycol 3350 Powder 17 Gm Packet) 238 gm PO 01/22/21@1600 [facility] Stop: 01/22/21 16:01 Last Admin: 01/22/21 18:42 Dose: 238 gm Documented by: - Exam General: Alert, Oriented, Cooperative, No Acute Distress Lungs: Clear to Auscultation, Normal Respiratory Effort Cardiovascular: Regular Rate, Regular Rhythm GI/Abdominal Exam: Normal Bowel Sounds, Soft, Non-Tender Extremities: Normal Inspection, Normal Range of Motion, Non-Tender, No Pedal Edema Neurological: No New Focal Deficit Psy/Mental Status: Alert, Normal Affect, Normal Mood - Patient Data Lab Results Last 24 hrs: Laboratory Results - last 24 hr 01/21/21 01/22/21 01/23/21 Range/Units 11:47 18:15 05:20 WBC 5.16 (4.0-11.0) K/uL RBC 2.72 L (4.50-5.90) M/uL Hgb 9.0 L 7.9 L (13.0-17.0) g/dL Hct 25.6 L 22.7 L (38.0-50.0) % MCV 83.5 (80.0-98.0) fL MCH 29.0 (27.0-32.0) pg MCHC 34.8 (31.0-37.0) g/dL RDW Std Deviation 43.9 (28.0-62.0) fl RDW Coeff of Reji 15 (11.0-15.0) % Plt Count 152 (150-400) K/uL MPV 8.90 (7.40-12.00) fL Neut % (Auto) 62.0 (48.0-80.0) % Lymph % (Auto) 27.3 (16.0-40.0) % [place] % (Auto) 6.8 (0.0-15.0) % Eos % (Auto) 3.5 (0.0-7.0) % Baso % (Auto) 0.4 (0.0-1.5) % Neut # (Auto) 3.2 (1.4-5.7) K/uL Lymph # (Auto) 1.4 (0.6-2.4) K/uL [place] # (Auto) 0.4 (0.0-0.8) K/uL Eos # (Auto) 0.2 (0.0-0.7) K/uL Baso # (Auto) 0.0 (0.0-0.1) K/uL Nucleated RBC % 0.0 /100WBC Nucleated RBCs # 0 K/uL Sodium (136-148) mmol/L Potassium (3.5-5.1) mmol/L Chloride (98-107) mmol/L Carbon Dioxide (21.0-32.0) mmol/L BUN (7.0-18.0) mg/dL Creatinine (0.8-1.3) mg/dL Est Cr Clr Drug Dosing mL/min Estimated GFR (MDRD) ml/min Glucose (74-106) mg/dL Calcium (8.5-10.1) mg/dL Blood Type Antibody Screen Crossmatch See Detail 01/23/21 01/23/21 Range/Units 05:20 09:33 WBC (4.0-11.0) K/uL RBC (4.50-5.90) M/uL Hgb (13.0-17.0) g/dL Hct (38.0-50.0) % MCV (80.0-98.0) fL MCH (27.0-32.0) pg MCHC (31.0-37.0) g/dL RDW Std Deviation (28.0-62.0) fl RDW Coeff of Reji (11.0-15.0) % Plt Count (150-400) K/uL MPV (7.40-12.00) fL Neut % (Auto) (48.0-80.0) % Lymph % (Auto) (16.0-40.0) % [place] % (Auto) (0.0-15.0) % Eos % (Auto) (0.0-7.0) % Baso % (Auto) (0.0-1.5) % Neut # (Auto) (1.4-5.7) K/uL Lymph # (Auto) (0.6-2.4) K/uL [place] # (Auto) (0.0-0.8) K/uL Eos # (Auto) (0.0-0.7) K/uL Baso # (Auto) (0.0-0.1) K/uL Nucleated RBC % /100WBC Nucleated RBCs # K/uL Sodium 139 (136-148) mmol/L Potassium 3.9 (3.5-5.1) mmol/L Chloride 109 H (98-107) mmol/L Carbon Dioxide 22.9 (21.0-32.0) mmol/L BUN 10 (7.0-18.0) mg/dL Creatinine 0.9 (0.8-1.3) mg/dL Est Cr Clr Drug Dosing 86.56 mL/min Estimated GFR (MDRD) > 60.0 ml/min Glucose 90 (74-106) mg/dL Calcium 8.0 L (8.5-10.1) mg/dL Blood Type O NEGATIVE Antibody Screen NEGATIVE Crossmatch See Detail Result Diagrams: 01/23/21 05:20 01/23/21 05:20 Sepsis Event Note - Evaluation Sepsis Screening Result: No Definite Risk - Focused Exam Vital Signs: Vital Signs Temp Temp Pulse Resp BP Pulse Ox 01/23/21 12:00 96.6 F L 73 20 111/62 99 01/23/21 07:57 96.9 F 70 22 H 115/66 99 01/23/21 05:00 97.9 F 81 17 121/68 98 - Problem List & Annotations (1) UGIB (upper gastrointestinal bleed) SNOMED Code(s): 62584178 Code(s): K92.2 - GASTROINTESTINAL HEMORRHAGE, UNSPECIFIED Status: Acute Current Visit: Yes (2) Hypertension SNOMED Code(s): 95479631 Code(s): I10 - ESSENTIAL (PRIMARY) HYPERTENSION Status: Chronic Current Visit: Yes (3) Obesity SNOMED Code(s): 904481681, 166120989 Code(s): E66.9 - OBESITY, UNSPECIFIED Status: Chronic Current Visit: Yes (4) ANNETTE (obstructive sleep apnea) SNOMED Code(s): 47864612 Code(s): G47.33 - OBSTRUCTIVE SLEEP APNEA (ADULT) (PEDIATRIC) Status: Chronic Current Visit: Yes - Problem List Review Problem List Initiated/Reviewed/Updated: Yes - Plan Plan:: This 60-year-old male admitted with upper GI bleed 1. Upper GI bleed -Hemoglobin dipped to 7.9 this morning could be due to hemoconcentration on arrival and with resuscitation has shown more accurate hemoglobin -Blood pressure stable -Guaiac positive in the ER -Protonix 40 mg every 12 IV -Stop IV fluids -Finished prep today for colonoscopy and EGD likely start clear liquid diet after EGD and await surgeon recommendation -Consult Dr. Tom Dumont, general surgery for endoscopy 2. HTN/ANNETTE -Hold losartan for now VTE prophylaxis: SCDs and ambulation only due to current bleeding GI prophylaxis: Protonix CODE STATUS: Full code Dispo: Possible discharge in a.m.
[2021-01-23] MEDS ORDERED: ePHEDrine 50 MG/ML SDV ONE (13:20)
--- NOTE | 2021-01-23 13:47 | PCM.OPNOTE ---
- General Post-Op/Procedure Note Date of Surgery/Procedure: 01/23/21 Operative Procedure(s): EGD with biopsies. Colonoscopy Findings: Mild gastritis and duodenitis Normal colon No signs of current bleeding dictation number [id number] Pre Op Diagnosis: Dark stools Post-Op Diagnosis: Mild gastritis and duodenitis. Normal colon. No signs of current bleeding Primary Surgeon: Tom Dumont Pathology: EGD biopsies Complications: None Condition: Good Free Text/Narrative:: Intake & Output 01/22/21 01/23/21 01/23/21 22:59 06:59 14:59 Intake Total 720 2307 Output Total 800 0 Balance -80 2307
--- NOTE | 2021-01-23 13:49 | PCM.POSTAN ---
POST ANESTHESIA ASSESSMENT - MENTAL STATUS Mental Status: Alert, Oriented - VITAL SIGNS Vital Signs: Last Vital Signs Temp 97.9 F 01/23/21 13:38 Pulse 80 01/23/21 13:44 Resp 18 01/23/21 13:44 BP 87/42 L 01/23/21 13:44 Pulse Ox 100 01/23/21 13:44 - RESPIRATORY Respiratory Status: Respiratory Rate WNL, Airway Patent, O2 Saturation Stable - CARDIOVASCULAR CV Status: Pulse Rate WNL, Blood Pressure Stable - GASTROINTESTINAL GI Status: No Symptoms - PAIN Pain Score: 0 - POST OP HYDRATION Hydration Status: Adequate & Stable
--- NOTE | 2021-01-23 13:51 | PCM48HPAN ---
Post Anesthesia Note - EVALUATION WITHIN 48HRS OF ANESTHETIC Vital Signs in Normal Range: Yes Patient Participated in Evaluation: Yes Respiratory Function Stable: Yes Airway Patent: Yes Cardiovascular Function Stable: Yes Hydration Status Stable: Yes Pain Control Satisfactory: Yes Nausea and Vomiting Control Satisfactory: Yes Mental Status Recovered: Yes Vital Signs: Last Vital Signs Temp 97.9 F 01/23/21 13:38 Pulse 77 01/23/21 13:49 Resp 17 01/23/21 13:49 BP 96/40 L 01/23/21 13:49 Pulse Ox 100 01/23/21 13:49 - COMMENTS/OBSERVATIONS Free Text/Narrative:: Pt doing well post-op. VSS. No apparent anesthetic complications. Dr. Taiwo Taylor
[2021-01-23 15:48] VITALS: BP 121/68
--- NOTE | 2021-01-23 16:14 | PCM.DCSUM1 ---
Discharge Summary - Hospital Course Brief History: This 60-year-old male with past medical history of HTN, ANNETTE and obesity along with hiatal hernia laparoscopic surgery approximately 15 years ago presented to the ER today with complaints of generalized weakness lightheadedness and dark tarry stools for approximately 3 days. He denies any abdominal pain fevers chills chest pain or shortness of breath. He denies any use of blood thinners. He denies use of Pepto-Bismol or Tums recently no daily use of PPIs. He reports intermittent use of Excedrin for headaches has not used anything recently. He denies any tobacco use or recreational drug use. He reports he drinks a couple drinks a couple times a week but not nightly. Reports he had a colonoscopy a few years ago which they found an intestinal polyp which was removed. He reports he is currently due for colonoscopy denies ever having an EGD. He denies any history of GERD after hiatal hernia surgery. In the ER EKG sinus rhythm heart rate [address] or T wave changes. Guaiac positive stools he was treated with 1 L IV fluids. Lab work reveals WBC 11.5 hemoglobin 12.6 hematocrit 36.2. INR 1.05 BUN is 50 creatinine 1.1. Glucose 158 lactic acid elevated at 2.4 troponin negative Covid swab negative abdominal CTA of the belly reveals no acute findings in the abdomen or pelvis no evidence of bowel inflammation active extravasation or intraluminal blood products. Mildly large prostate gland. Cluster small pulmonary nodules with associated groundglass opacities in the anterior right lower lobe is likely infectious or inflammatory largest nodule 6 mm. Follow-up with PCP. Vital signs in the ER initially patient was noted to be tachycardic heart rate 118 blood pressure 120/71 97% on room air. ER provider contacted Dr. Tom Dumont, general surgery will likely take patient for endoscopy. Patient to be admitted for suspected upper GI bleed. - Discharge Data Discharge Date: 01/23/21 Discharge Disposition: Home, Self-Care 01 Condition: Good - Referral to Home Health Primary Care Physician: Vin Ivey MD - Discharge Diagnosis/Problem(s) (1) UGIB (upper gastrointestinal bleed) SNOMED Code(s): 18642519 ICD Code: K92.2 - GASTROINTESTINAL HEMORRHAGE, UNSPECIFIED Status: Acute Current Visit: Yes (2) Hypertension SNOMED Code(s): 30324150 ICD Code: I10 - ESSENTIAL (PRIMARY) HYPERTENSION Status: Chronic Current Visit: Yes (3) Obesity SNOMED Code(s): 640338073, 512210297 ICD Code: E66.9 - OBESITY, UNSPECIFIED Status: Chronic Current Visit: Yes (4) ANNETTE (obstructive sleep apnea) SNOMED Code(s): 21757991 ICD Code: G47.33 - OBSTRUCTIVE SLEEP APNEA (ADULT) (PEDIATRIC) Status: Chronic Current Visit: Yes - Patient Summary/Data Operative Procedure(s) Performed: EGD with biopsies. Colonoscopy Consults: Consultations 01/21/21 15:23 Consult to Physician [CONS] Routine Hospital Course: Admission diagnoses Upper GI bleed Discharge diagnoses Upper GI bleed Status post endoscopy/colonoscopy Other PMH HTN Jason was admitted secondary to melanotic stools with symptomatic anemia. Initially patient came in hemoglobin was 12.6 after fluid resuscitation hemoglobin dropped to 7.9. 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 Patient was evaluated by general surgery and had EGD and colonoscopy this morning. Patient had colonoscopy prep with brown to green then clearing stools this morning. EGD showed no signs of active bleeding mild gastritis noted per Dr. Dumont. Colonoscopy also showed no active bleeding. Please see operative report per Dr. Tom Dumont. This afternoon patient stable feeling much improved. Repeat hemoglobin this morning is 8.4. Patient is requesting discharge home. We did suggest he stay through the night to have a repeat hemoglobin in the morning, but he is very eager to go home. He is given strict instructions to return to the ER such as having return of melanotic or black bloody stools. He is to return to the ER if he is lightheaded dizzy faint or has chest pain. He is to not take any NSAIDs these include Excedrin, ibuprofen, aspirin, Aleve, Motrin and Advil. He is okay to take Tylenol alone. Discharge instructions explained with him and his at bedside. He is to take Protonix twice daily for 1 month. He is also given iron which he was warned this may turn his stools black. He will have repeat CBC on Tuesday resul ts to his PCP Dr. Ivey. Again patient urged to return to the ER if any concerns should arise sooner. He is to see Dr. Tom Dumont in 1 week for biopsy results. - Patient Instructions Diet: Full Liquid Diet Activity: As Tolerated Driving: Do Not Drive (for 24 hours after surgery) Showering/Bathing: May Shower Notify Provider of: Fever, Increased Pain, Swelling and Redness, Drainage, Nausea and/or Vomiting Other/Special Instructions: Please return to ED or clinic if concerns of black, bloody stools return. Lightheadedness, dizziness and/or chest pain palpitations. Take Iron daily, may turn stools black. Monitor closely. DO NOT TAKE NSAIDS (Aleve, Ibuprofen, Motrin, Advil, ASA, or Excedrine). Plain Tylenol is ok if needed. - Discharge Plan *PRESCRIPTION DRUG MONITORING PROGRAM REVIEWED*: Not Applicable *COPY OF PRESCRIPTION DRUG MONITORING REPORT IN PATIENT JIMMIE: Not Applicable Prescriptions/Med Rec: Iron Polysaccharide Complex [Polysaccharide Iron] 150 mg PO DAILY #30 capsule Pantoprazole Sodium [Protonix] 40 mg PO BIDMEALS #60 tablet. Home Medications: Home Meds Iron Polysaccharide Complex [Polysaccharide Iron] 150 mg PO DAILY #30 capsule 01/23/21 [Rx] Losartan Potassium 50 mg PO DAILY #0 01/23/21 [Rx] Pantoprazole Sodium [Protonix] 40 mg PO BIDMEALS #60 tablet. 01/23/21 [Rx] Oxygen Therapy Mode: Room Air Patient Handouts: Upper Endoscopy, Adult, Care After, Iron tablets, capsules, extended-release tablets, Colonoscopy, Adult, Care After, Gastrointestinal Bleeding, [id number], Pantoprazole tablets Referrals: Vin Ivey MD [Primary Care Provider] - 01/29/21 9:30 am - Discharge Summary/Plan Comment DC Time >30 min.: No Total # of Minutes for Discharge Time: 25 - Patient Data Vitals - Most Recent: Last Vital Signs Temp 96.7 F L 01/23/21 15:47 Pulse 78 01/23/21 15:47 Resp 20 01/23/21 15:47 BP 121/68 01/23/21 15:47 Pulse Ox 94 L 01/23/21 15:47 Weight - Most Recent: 94.937 kg I&O - Last 24 hours: Intake & Output 01/23/21 01/23/21 01/23/21 06:59 14:59 22:59 Intake Total 2307 950 Output Total 0 Balance 2307 950 Lab Results - Last 24 hrs: Laboratory Results - last 24 hr 01/21/21 01/22/21 01/23/21 Range/Units 11:47 18:15 05:20 WBC 5.16 (4.0-11.0) K/uL RBC 2.72 L (4.50-5.90) M/uL Hgb 9.0 L 7.9 L (13.0-17.0) g/dL Hct 25.6 L 22.7 L (38.0-50.0) % MCV 83.5 (80.0-98.0) fL MCH 29.0 (27.0-32.0) pg MCHC 34.8 (31.0-37.0) g/dL RDW Std Deviation 43.9 (28.0-62.0) fl RDW Coeff of Reji 15 (11.0-15.0) % Plt Count 152 (150-400) K/uL MPV 8.90 (7.40-12.00) fL Neut % (Auto) 62.0 (48.0-80.0) % Lymph % (Auto) 27.3 (16.0-40.0) % [place] % (Auto) 6.8 (0.0-15.0) % Eos % (Auto) 3.5 (0.0-7.0) % Baso % (Auto) 0.4 (0.0-1.5) % Neut # (Auto) 3.2 (1.4-5.7) K/uL Lymph # (Auto) 1.4 (0.6-2.4) K/uL [place] # (Auto) 0.4 (0.0-0.8) K/uL Eos # (Auto) 0.2 (0.0-0.7) K/uL Baso # (Auto) 0.0 (0.0-0.1) K/uL Nucleated RBC % 0.0 /100WBC Nucleated RBCs # 0 K/uL Sodium (136-148) mmol/L Potassium (3.5-5.1) mmol/L Chloride (98-107) mmol/L Carbon Dioxide (21.0-32.0) mmol/L BUN (7.0-18.0) mg/dL Creatinine (0.8-1.3) mg/dL Est Cr Clr Drug Dosing mL/min Estimated GFR (MDRD) ml/min Glucose (74-106) mg/dL Calcium (8.5-10.1) mg/dL Blood Type Antibody Screen Crossmatch See Detail 01/23/21 01/23/21 01/23/21 Range/Units 05:20 09:33 14:48 WBC (4.0-11.0) K/uL RBC (4.50-5.90) M/uL Hgb 8.4 L (13.0-17.0) g/dL Hct 23.8 L (38.0-50.0) % MCV (80.0-98.0) fL MCH (27.0-32.0) pg MCHC (31.0-37.0) g/dL RDW Std Deviation (28.0-62.0) fl RDW Coeff of Reji (11.0-15.0) % Plt Count (150-400) K/uL MPV (7.40-12.00) fL Neut % (Auto) (48.0-80.0) % Lymph % (Auto) (16.0-40.0) % [place] % (Auto) (0.0-15.0) % Eos % (Auto) (0.0-7.0) % Baso % (Auto) (0.0-1.5) % Neut # (Auto) (1.4-5.7) K/uL Lymph # (Auto) (0.6-2.4) K/uL [place] # (Auto) (0.0-0.8) K/uL Eos # (Auto) (0.0-0.7) K/uL Baso # (Auto) (0.0-0.1) K/uL Nucleated RBC % /100WBC Nucleated RBCs # K/uL Sodium 139 (136-148) mmol/L Potassium 3.9 (3.5-5.1) mmol/L Chloride 109 H (98-107) mmol/L Carbon Dioxide 22.9 (21.0-32.0) mmol/L BUN 10 (7.0-18.0) mg/dL Creatinine 0.9 (0.8-1.3) mg/dL Est Cr Clr Drug Dosing 86.56 mL/min Estimated GFR (MDRD) > 60.0 ml/min Glucose 90 (74-106) mg/dL Calcium 8.0 L (8.5-10.1) mg/dL Blood Type O NEGATIVE Antibody Screen NEGATIVE Crossmatch See Detail Med Orders - Current: Current Medications Pantoprazole Sodium 40 mg/ (Sodium Chloride) 10 mls @ 300 mls/hr IV Q12H [facility] Last Admin: 01/23/21 08:23 Dose: 300 mls/hr Documented by: Ondansetron HCl (Ondansetron 4 Mg/2 Ml Sdv) 4 mg IVPUSH Q4H PRN PRN Reason: Nausea Sodium Chloride (Sodium Chloride 0.9% 2.5 Ml Syringe) 2.5 ml FLUSH ASDIRECTED PRN PRN Reason: Keep Vein Open Discontinued Medications Bisacodyl (Bisacodyl 5 Mg Tab) 10 mg PO BID@1200,2000 [facility] Stop: 01/22/21 20:01 Last Admin: 01/22/21 20:55 Dose: 10 mg Documented by: Ephedrine Sulfate (Ephedrine 50 Mg/Ml Sdv) Confirm Administered Dose 50 mg .ROUTE .STK-MED ONE Stop: 01/23/21 13:21 Fentanyl (Fentanyl 100 Mcg/2 Ml Sdv) Confirm Administered Dose 100 mcg .ROUTE .STK-MED ONE Stop: 01/23/21 12:48 Sodium Chloride (Normal Saline) 1,000 mls @ 999 mls/hr IV .Bolus ONE Stop: 01/21/21 11:05 Last Admin: 01/21/21 10:23 Dose: 999 mls/hr Documented by: Pantoprazole Sodium 80 mg/ (Sodium Chloride) 20 mls @ 420 mls/hr IVPUSH ONETIME ONE Stop: 01/21/21 10:24 Last Admin: 01/21/21 10:28 Dose: 420 mls/hr Documented by: Sodium Chloride (Normal Saline) 1,000 mls @ 999 mls/hr IV .Bolus ONE Stop: 01/21/21 12:25 Last Admin: 01/21/21 11:34 Dose: 999 mls/hr Documented by: Sodium Chloride (Normal Saline) 1,000 mls @ 125 mls/hr IV Q8H [facility] Last Admin: 01/23/21 08:23 Dose: 125 mls/hr Documented by: Propofol (Diprivan 50 Ml) Confirm Administered Dose 50 mls @ as directed .ROUTE .STK-MED ONE Stop: 01/23/21 12:45 Iopamidol (Iopamidol 755 Mg/Ml 500 Ml Multipack Bottle) 100 ml IVPUSH ONETIME STA Stop: 01/21/21 11:36 Last Admin: 01/21/21 11:36 Dose: 100 ml Documented by: Lidocaine HCl (Lidocaine 1% 5 Ml Sdv) Confirm Administered Dose 5 ml .ROUTE .STK-MED ONE Stop: 01/23/21 12:48 Polyethylene Glycol (Polyethylene Glycol 3350 Powder 17 Gm Packet) 238 gm PO 01/22/21@1600 BERNIE Stop: 01/22/21 16:01 Last Admin: 01/22/21 18:42 Dose: 238 gm Documented by: *Q Meaningful Use (DIS) - VTE *Q VTE Pharmacological Contraindications *Q: Active Hemorrhage
[2021-01-23 18:48] VITALS: PULSE 76
--- NOTE | 2021-01-24 06:10 | OR ---
SURGEON: VIKTOR TAVERA MD DATE OF PROCEDURE: 01/23/2021 PREOPERATIVE DIAGNOSIS: Dark stools. POSTOPERATIVE DIAGNOSES: 1. Some mild gastritis and duodenitis. 2. Normal colonoscopy. PROCEDURE PERFORMED: Esophagogastroduodenoscopy with biopsies and colonoscopy. PRIMARY SURGEON: Viktor Tavera MD ANESTHESIA: With Anesthesiology. EXTENT OF EGD: To the duodenum. EXTENT OF COLONOSCOPY: To the cecum. LIMITATIONS: None. BOWEL PREP: Excellent. REASON FOR PROCEDURE: The patient is a pleasant 60-year-old gentleman who had 3 days of very dark stools and a drop in hemoglobin. He was admitted to the hospital for GI bleed. The patient says on his bowel prep today, the stool was actually mainly brown and clear, it was most likely tinged. He denies any abdominal pain. He says he does have a history of some dark stools every now and then in the past. PROCEDURE IN DETAIL: Physical examination was performed. The risks and benefits associated with procedure were explained to patient in detail. The patient verbalized understanding and agreement of the same. The patient was then connected to the appropriate monitoring device and IV started. EKG, pulse, pulse oximetry, blood pressure, and capnography were monitored throughout the entire procedure. Continuous oxygen and sedation were provided by the anesthesiologist. The patient was placed in left lateral decubitus position. Sedation was began. After adequate sedation was achieved, the upper endoscope was advanced under direct visualization without any difficulty in the upper GI tract. The anatomy and mucosa of the esophagus, GE junction, stomach, pylorus, and duodenum were inspected. Duodenal bulb had some slight irritation, some very minimal duodenitis but no ulcerations. Further down the first and second part of the duodenal mucosa appeared normal. Scope was brought into the stomach. Both retrograde and antegrade views of the stomach were done. Right at the pylorus, the patient did have some moderate gastritis, looks like it has also been healing. This could potentially have a source of some bleeding at least. No ulcerations seen. Did do some biopsies to check for H. pylori. On retroflex, the patient does look like he has some type of fundoplication that is still intact. Scope was brought back to the GE junction. GE junction was approximately 37 cm from incisor. GE junction had a good Z-line, good squamocolumnar junction. Scope was brought into the stomach. Biopsy sites were inspected. There was good hemostasis. The stomach was deinsufflated. Scope was brought back through the esophagus. Esophagus appeared normal. Scope was completely removed. Procedure was terminated. Gloves and scopes were changed. Now, a rectal exam was performed. No rectal masses or polyps were felt. Has very a small hemorrhoid, noninflamed. Now, a well-lubricated Olympus colonoscope was inserted in the rectum, advanced under direct visualization to the level of the cecum. The patient had a little bit of a floppy sigmoid, but did get to the cecum. A photograph was taken of the cecal cap. Scope was then slowly withdrawn in circular fashion looking at the color, texture, anatomy, and integrity of the mucosa from the cecum to the anal canal. The patient had excellent bowel prep with just some residual prep left, had a couple of little dark likely old small blood clots that were all mobile. Did suction irrigate everything out for excellent look at the mucosa. I did a picture of the terminal ileum. I did not see any lesions or polyps. The patient had what looked to be beginning of some scant diverticulosis in the sigmoid colon. Scope was retroflexed in the rectum. Scope was completely removed, and the procedure was terminated. ENDOSCOPIC DIAGNOSES: 1. Some mild gastritis, minimal duodenitis. 2. Normal colonoscopy. RECOMMENDATIONS: any signs of any active bleeding. Potentially, there might have been the gastritis but no ulceration. I did go over with the patient that he should stay off his Excedrin and continue Protonix. This was also discussed with the Medicine team. The patient's next colonoscopy should be in 10 years. Sooner if he develops signs and symptoms such as change in bowel habits or blood in the stool. The patient may follow up with me the clinic to go over pathology from his upper endoscopy. JUD / DAY /[id number]
== END 2021-01-23 16:45 | disposition home or self-care (01) | DRG 241 ==
LOC: MW.ED 09:52 → MW.MS 13:23
PROVIDERS: ADMIT Internal Medicine; ATTEND Internal Medicine
PROC: 0DB48ZX Excision of Esophagogastric Junction, Via Natural or Artificial Opening Endoscopic, Diagnostic (ICD-10-PCS; principal; 2021-01-23)
PROC: 0DB68ZX Excision of Stomach, Via Natural or Artificial Opening Endoscopic, Diagnostic (ICD-10-PCS; 2021-01-23)
PROC: 0DJD8ZZ Inspection of Lower Intestinal Tract, Via Natural or Artificial Opening Endoscopic (ICD-10-PCS; 2021-01-23)
DX: K29.71 Gastritis, unspecified, with bleeding (principal); I10 Essential (primary) hypertension; G47.33 Obstructive sleep apnea (adult) (pediatric); E66.9 Obesity, unspecified; Z20.822 Contact with and (suspected) exposure to COVID-19; N40.0 Benign prostatic hyperplasia without lower urinary tract symptoms; R91.8 Other nonspecific abnormal finding of lung field; K57.30 Diverticulosis of large intestine without perforation or abscess without bleeding; D64.9 Anemia, unspecified; K21.9 Gastro-esophageal reflux disease without esophagitis; K29.80 Duodenitis without bleeding; Z98.890 Other specified postprocedural states; Z68.31 Body mass index [BMI] 31.0-31.9, adult; K64.9 Unspecified hemorrhoids
CPT/HCPCS: 36415; 74174; 74174-26; 80048; 80053; 83605; 83690; 83735; 84484; 85014; 85018; 85025; 85610; 85730; 86850; 86900; 86901; 86920; 86921; 86922; 93005; A9270-GY; C9113; J2704; J3010; J7030; Q9967; U0002

== ENCOUNTER 2023-07-06 16:49 | Emergency (ER) | payer BC ==
[2023-07-06] MEDS: Acetaminophen/HYDROcodone 325-5 MG Tab PO ONE (17:35)
[2023-07-06] MEDS: Ibuprofen 600 MG Tab PO ONE (17:43)
[2023-07-06 18:12] VITALS: BP 148/82; PULSE 90
== END 2023-07-06 18:12 | disposition home or self-care (01) ==
LOC: MW.ED 16:49
DX: S46.211A Strain of muscle, fascia and tendon of other parts of biceps, right arm, initial encounter (principal); W20.8XXA Other cause of strike by thrown, projected or falling object, initial encounter
CPT/HCPCS: 73060; 99283; A9270

== ENCOUNTER 2023-07-13 08:25 | Day surgery (SDC) | payer BC ==
[~2023-07-13 08:25] MED LIST: Albuterol 0.083% 2.5 MG/3 ML Neb Soln NEB PRN; HYDROmorphone 1 MG/ML Syringe IVPUSH PRN; Metoclopramide 10 MG/2 ML SDV IVPUSH PRN; Morphine 2 MG/ML SYRINGE IVPUSH PRN; Naloxone 0.4 MG/ML SDV IVPUSH PRN; Ondansetron 4 MG/2 ML SDV IVPUSH PRN; ceFAZolin 2 GM in Sodium Chloride 0.9% 50 ML IV ONE; droPERidol 5 MG/2 ML SDV IVPUSH PRN; fentaNYL 50 MCG/ML SDV IVPUSH PRN
[2023-07-13] MEDS ORDERED: Lidocaine 1% with EPINEPHrine 1:100,000 50 ML MDV ONE (08:32)
[2023-07-13] MEDS: Lactated Ringers 1,000 ML IV SCH (09:01)
[2023-07-13] MEDS ORDERED: Propofol 200 MG/20 ML SDV ONE ×2 (10:34→15:01)
[2023-07-13] MEDS ORDERED: fentaNYL 250 MCG/5 ML SDV ONE (10:35)
[2023-07-13] MEDS ORDERED: Rocuronium Bromide 50 MG/5 ML Syringe ONE (10:37)
[2023-07-13] MEDS ORDERED: Glycopyrrolate 0.2 MG/ML SDV ONE ×2 (11:24→11:35)
[2023-07-13] MEDS ORDERED: Ondansetron 4 MG/2 ML SDV ONE (11:35)
[2023-07-13] MEDS ORDERED: Dexamethasone 4 MG/ML 5 ML MDV ONE (11:35)
[2023-07-13] MEDS ORDERED: Sugammadex Sodium 200 MG/2 ML VIAL IV ONE (11:35)
[2023-07-13] MEDS ORDERED: fentaNYL 100 MCG/2 ML SDV ONE (11:42)
[2023-07-13] MEDS ORDERED: Lidocaine 2% 5 ML SDV ONE (13:01)
[2023-07-13] MEDS ORDERED: Ropivacaine 0.5% 5 MG/ML 30 ML SDV ONE (13:02)
[2023-07-13 14:34] VITALS: BP 125/88; PULSE 83
[2023-07-13] MEDS ORDERED: ceFAZolin 2 GM Vial ONE (16:09)
[2023-07-15] MEDS ORDERED: Lidocaine 2% 11 ML Jelly Filled Syringe ONE (10:29)
[2023-07-15] MEDS ORDERED: ePHEDrine 50 MG/ML SDV ONE (10:29)
== END 2023-07-13 14:10 | disposition home or self-care (01) ==
LOC: MW.SDS 08:25
PROVIDERS: ATTEND Orthopaedic Surgery
DX: S46.212A Strain of muscle, fascia and tendon of other parts of biceps, left arm, initial encounter (principal); I10 Essential (primary) hypertension; E66.9 Obesity, unspecified; Z68.30 Body mass index [BMI] 30.0-30.9, adult; Z79.899 Other long term (current) drug therapy; X58.XXXA Exposure to other specified factors, initial encounter
CPT/HCPCS: 24342; J0131; J0690; J1100; J2405; J2704; J2795; J3010; J3490; J7120; C1776